=== PATIENT | female | born 1935 | race African-American/Black ===

== ENCOUNTER 2017-06-19 15:50 | Observation (INO) ==
[2017-06-19] MEDS ORDERED: Aspirin 81 MG TAB.CHEW PO ONE (16:08)
[2017-06-19] MEDS ORDERED: Pantoprazole 40 MG VIAL IVP ONE (16:10)
[2017-06-19] MEDS ORDERED: Ondansetron 4 MG/2 ML VIAL IVP ONE ×2 (16:11→17:57)
--- NOTE | 2017-06-19 16:14 | Emergency Department Note ---
Disposition Clinical Impression: Common bile duct stone Chest pain Qualifiers: Chest pain type: unspecified Qualified Code(s): R07.9 - Chest pain, unspecified Fever Qualifiers: Fever type: unspecified Qualified Code(s): R50.9 - Fever, unspecified Nausea & vomiting Qualifiers: Vomiting type: unspecified Vomiting Intractability: unspecified Qualified Code( s): R11.2 - Nausea with vomiting, unspecified Disposition: Admitted As Inpatient Condition: Fair Referrals: Nawaf Tapia DO [Primary Care Provider] - Time of Disposition: 18:51 Chest Pain HPI - General Chief Complaint: ED Chest Pain Stated Complaint: cp/dizzy/vomiting Time Seen by Provider: 06/19/17 16:05 Source: patient Mode of arrival: ambulatory Limitations: no limitations Vital Signs Reviewed: Yes Nursing Notes Reviewed: Yes - History of Present Illness HPI Narrative: 81-year-old female who comes in complaining of chest pain for the last couple of days. Also complains of epigastric pain since she's been vomiting dark material. When asked where the pain was points across her chest and also her epigastrium. She has no history of cardiac disease. Patient takes PPI at home. She was found to have a temperature here at the emergency department. Pt complaint: chest pain Onset (ago): day(s) Duration: intermittent Onset: during rest Pain Location: substernal, left chest, right chest Severity: moderate Severity scale (1-10): 9 Quality: tightness, aching, heaviness Pain Radiation: abdomen Improves with: nothing Worsens with: other (Vomiting) Context: recent illness Associated symptoms: Reports: nausea, vomiting Treatments prior to arrival chest pain: none - Related Data Home Medications Medication Instructions Recorded Confirmed Esomeprazole Magnesium [Nexium] 40 mg PO DAILY 02/24/17 02/24/17 Lansoprazole [Prevacid] 30 mg PO DAILY 02/24/17 02/24/17 Previous Rx's Medication Instructions Recorded Sucralfate [Carafate] 1 gm PO QIDAC #28 tablet 02/24/17 Sulfamethoxazole/Trimeth DS 1 each PO BID #10 tablet 02/24/17 [Bactrim DS] Magnesium Citrate [Citroma] 296 ml PO DAILY #1 solution 04/20/17 Allergies Allergy/AdvReac Type Severity Reaction Status Date / Time Iodinated Contrast- Oral and Allergy Chest Pain Verified 02/24/17 02:11 IV Dye Penicillins Allergy Hives Verified 02/24/17 02:11 All systems ED: reviewed and negative except as stated. Constitutional: Denies: fever, chills, weakness, weight change Eyes: Denies: eye pain, eye discharge, vision change ENT ED: Denies: ear pain, throat pain, dental pain, hearing loss, epistaxis, congestion, dysphagia Cardiovascular: Reports: chest pain. Denies: palpitations, dyspnea on exertion , edema, syncope Respiratory: Denies: cough, dyspnea, wheezes, hemoptysis, stridor Gastrointestinal: Reports: abdominal pain, nausea, vomiting. Denies: diarrhea, constipation, hematemesis, melena, hematochezia Genitourinary: Denies: dysuria, frequency, hematuria, discharge Musculoskeletal: Denies: back pain, neck pain, arthralgia, myalgia Integumentary: Denies: rash, abrasion, lesions Neurological: Denies: headache, weakness, numbness, paresthesias, confusion, abnormal gait, vertigo Psychiatric: Denies: anxiety, depression, suicidal thoughts, homicidal thoughts , auditory hallucinations, visual hallucinations Endocrine: Denies: fatigue Hematological/Lymphatic: Denies: easy bleeding, easy bruising Allergic/Immunologic: Denies: facial swelling, urticaria Chest Pain PMH - Past Medical History Medical history: Reports: arthritis, diabetes, GERD, hypertension Surgical history: Reports: appendectomy, cataract, cholecystectomy, hysterectomy Psychiatric history: Reports: no psych history - Social History Smoking Status: Never smoker Alcohol use: Reports: none Drug use: Reports: none Physical Exam - General Limitations: no limitations General appearance: alert, in no apparent distress - Head Head exam: atraumatic, normocephalic, normal inspection - Eye Eye exam: Present: normal appearance, PERRL, EOMI - ENT ENT exam: normal exam, normal oropharynx, mucous membranes moist - Neck Neck exam: Present: normal inspection, full ROM, trachea midline - Chest Chest inspection: Present: normal inspection, symmetric chest wall rise - Respiratory Respiratory exam: Present: normal lung sounds bilaterally - Cardiovascular Cardiovascular exam: Present: regular rate, normal rhythm, normal heart sounds - Abdominal Exam Abdominal exam: Present: tenderness. Absent: guarding, rebound Abdominal tenderness: Present: epigastrium - Extremities Exam Extremities exam: Present: normal inspection, full ROM. Absent: tenderness, pedal edema - Expanded Lower Extremity Exam Neurovascular/Tendon exam: Absent: motor deficit, sensory deficit, tendon deficit Gait: observed and normal - Back Exam Back exam: Present: normal inspection, full ROM. Absent: tenderness - Neurological Exam Neurological exam: Present: alert, oriented X3 - Psychiatric Psychiatric exam: Present: normal affect, normal mood - Skin Skin exam: Present: warm, dry, intact, normal color Course - Reevaluation(s) Reevaluation #1: 81-year-old comes in with epigastric pain into her right upper quadrant and right lower chest. Workup shows multiple common duct stones. She does have some elevation in her bilirubin, transaminases. Does have a fever of 102+. Concern for ascending cholangitis. Patient was given Cipro and Flagyl as she is allergic to penicillin. Time: 18:52 - Consultations Consultation #1: Discussed with Dr. Jaimes who recommends GI consult and admission to the hospitalist. Time: 18:25 Consultation #2: Discussed with , he is going to check with GI as I am not able to page them per protocol. Time: 18:46 Consultation #3: Discussed with , we will admit and recommends antibiotic Cipro and Flagyl. Time: 18:50 Vital Signs Temperature 102.1 F H 06/19/17 16:02 Pulse Rate 109 06/19/17 16:02 Respiratory Rate 22 06/19/17 16:02 Blood Pressure 110/54 06/19/17 16:02 O2 Sat by Pulse Oximetry 65 06/19/17 16:02 Temperature 102.1 F H 06/19/17 16:02 Pulse Rate 99 06/19/17 17:23 Respiratory Rate 20 06/19/17 17:23 Blood Pressure 93/54 06/19/17 17:23 O2 Sat by Pulse Oximetry 97 06/19/17 17:23 Oxygen Delivery Oxygen Delivery Room Air Chest Pain - Lab Data Lab results reviewed: Yes I reviewed the patient's lab results. Result diagrams: 06/19/17 16:10 06/19/17 16:10 Lab Results 06/19/17 06/19/17 06/19/17 Range/Units 16:10 16:10 16:10 WBC (4.3-11.1) K/mcL RBC (3.82-4.97) M/mcL Hgb (11.5-15.4) g/dL Hct (35.3-44.9) % MCV (83.0-100.0) fL MCH (28.0-33.3) pg MCHC (31.6-35.5) g/dL RDW (11.5-14.5) % Plt Count (140-400) K/mcL MPV (9.4-12.4) fL Immature Gran % (0-4) % Seg Neutrophils % % Lymphocytes % % Monocytes % % Eosinophils % % Basophils % % Neutrophils # (1.6-8.9) K/mcL Lymphocytes # (0.6-4.6) K/mcL Monocytes # (0.0-1.3) K/mcL Eosinophils # (0.0-0.6) K/mcL Basophils # (0.0-0.2) K/mcL Platelet Estimate (Normal) PT 10.9 (9.4-12.1) Seconds INR 1.0 APTT 24.9 L (26.0-36.0) Seconds Sodium 140 (136-145) mEq/L Potassium 3.8 (3.5-5.1) mEq/L Chloride 104 (98-107) mEq/L Carbon Dioxide 27 (23-29) mEq/L BUN 15 (8-23) mg/dL Creatinine 1.14 (0.60-1.20) mg/dL Est GFR ( Amer) 56 L (> 60) Est GFR (Non-Af Amer) 46 L (> 60) BUN/Creatinine Ratio 13 (6-26) Glucose 120 H (70-105) mg/dL Calculated Osmolality 292 (280-300) Lactic Acid 2.4 H (0.5-2.2) mmol/L Calcium 9.2 (8.6-10.3) mg/dL Total Bilirubin 1.5 H (0.3-1.0) mg/dL Direct Bilirubin 0.9 H (0.0-0.2) mg/dL Indirect Bilirubin 0.6 (0.0-1.2) mg/dL AST 634 H (13-39) Units/L ALT 256 H (7-52) Units/L Alkaline Phosphatase 190 H (34-104) Units/L Troponin I (< 0.04) ng/mL B-Natriuretic Peptide (Less than 100) pg/mL Serum Total Protein 7.1 (6.4-8.9) g/dL Albumin 3.9 (3.5-5.7) g/dL Globulin 3.2 (2.4-3.5) g/dL Albumin/Globulin Ratio 1.2 (1.1-2.2) Amylase 90 (29-103) Units/L Lipase 58 (11-82) Units/L Blood Type Antibody Screen 06/19/17 06/19/17 06/19/17 Range/Units 16:10 16:10 16:10 WBC 7.0 (4.3-11.1) K/mcL RBC 3.96 (3.82-4.97) M/mcL Hgb 11.1 L (11.5-15.4) g/dL Hct 35.2 L (35.3-44.9) % MCV 88.9 (83.0-100.0) fL MCH 28.0 (28.0-33.3) pg MCHC 31.5 L (31.6-35.5) g/dL RDW 13.5 (11.5-14.5) % Plt Count 201 (140-400) K/mcL MPV 10.5 (9.4-12.4) fL Immature Gran % 0.1 (0-4) % Seg Neutrophils % 98.0 % Lymphocytes % 1.4 % Monocytes % 0.4 % Eosinophils % 0.0 % Basophils % 0.1 % Neutrophils # 6.9 (1.6-8.9) K/mcL Lymphocytes # 0.1 L (0.6-4.6) K/mcL Monocytes # 0.0 (0.0-1.3) K/mcL Eosinophils # 0.0 (0.0-0.6) K/mcL Basophils # 0.0 (0.0-0.2) K/mcL Platelet Estimate Normal (Normal) PT (9.4-12.1) Seconds INR APTT (26.0-36.0) Seconds Sodium (136-145) mEq/L Potassium (3.5-5.1) mEq/L Chloride (98-107) mEq/L Carbon Dioxide (23-29) mEq/L BUN (8-23) mg/dL Creatinine (0.60-1.20) mg/dL Est GFR ( Amer) (> 60) Est GFR (Non-Af Amer) (> 60) BUN/Creatinine Ratio (6-26) Glucose (70-105) mg/dL Calculated Osmolality (280-300) Lactic Acid (0.5-2.2) mmol/L Calcium (8.6-10.3) mg/dL Total Bilirubin (0.3-1.0) mg/dL Direct Bilirubin (0.0-0.2) mg/dL Indirect Bilirubin (0.0-1.2) mg/dL AST (13-39) Units/L ALT (7-52) Units/L Alkaline Phosphatase (34-104) Units/L Troponin I < 0.03 (< 0.04) ng/mL B-Natriuretic Peptide 48 (Less than 100) pg/mL Serum Total Protein (6.4-8.9) g/dL Albumin (3.5-5.7) g/dL Globulin (2.4-3.5) g/dL Albumin/Globulin Ratio (1.1-2.2) Amylase (29-103) Units/L Lipase (11-82) Units/L Blood Type Antibody Screen 06/19/17 Range/Units 16:25 WBC (4.3-11.1) K/mcL RBC (3.82-4.97) M/mcL Hgb (11.5-15.4) g/dL Hct (35.3-44.9) % MCV (83.0-100.0) fL MCH (28.0-33.3) pg MCHC (31.6-35.5) g/dL RDW (11.5-14.5) % Plt Count (140-400) K/mcL MPV (9.4-12.4) fL Immature Gran % (0-4) % Seg Neutrophils % % Lymphocytes % % Monocytes % % Eosinophils % % Basophils % % Neutrophils # (1.6-8.9) K/mcL Lymphocytes # (0.6-4.6) K/mcL Monocytes # (0.0-1.3) K/mcL Eosinophils # (0.0-0.6) K/mcL Basophils # (0.0-0.2) K/mcL Platelet Estimate (Normal) PT (9.4-12.1) Seconds INR APTT (26.0-36.0) Seconds Sodium (136-145) mEq/L Potassium (3.5-5.1) mEq/L Chloride (98-107) mEq/L Carbon Dioxide (23-29) mEq/L BUN (8-23) mg/dL Creatinine (0.60-1.20) mg/dL Est GFR ( Amer) (> 60) Est GFR (Non-Af Amer) (> 60) BUN/Creatinine Ratio (6-26) Glucose (70-105) mg/dL Calculated Osmolality (280-300) Lactic Acid (0.5-2.2) mmol/L Calcium (8.6-10.3) mg/dL Total Bilirubin (0.3-1.0) mg/dL Direct Bilirubin (0.0-0.2) mg/dL Indirect Bilirubin (0.0-1.2) mg/dL AST (13-39) Units/L ALT (7-52) Units/L Alkaline Phosphatase (34-104) Units/L Troponin I (< 0.04) ng/mL B-Natriuretic Peptide (Less than 100) pg/mL Serum Total Protein (6.4-8.9) g/dL Albumin (3.5-5.7) g/dL Globulin (2.4-3.5) g/dL Albumin/Globulin Ratio (1.1-2.2) Amylase (29-103) Units/L Lipase (11-82) Units/L Blood Type O POSITIVE Antibody Screen NEGATIVE - Radiology Data Radiology results reviewed: Yes I reviewed the patient's radiology results. Chest X-Ray 06/19/17 16:08 IMPRESSION: No acute process. D/ / Tommy Meléndez MD / Tommy Meléndez MD Interpreting Provider: Tommy Meléndez MD Abdomen/Pelvis CT 06/19/17 16:40 IMPRESSION: 1. Dilated common bile duct with multiple stones and new intrahepatic biliary ductal dilatation compared to 2009. 2. Status post cholecystectomy. 3. Colonic diverticulosis without evidence of acute diverticulitis. D/ / Andre Torres MD / Andre Torres MD Interpreting Provider: Andre Torres MD Liver Ultrasound 06/19/17 17:29 IMPRESSION: 1. Central intrahepatic and extrahepatic biliary ductal dilation. Finding is suspicious for distal biliary ductal obstruction. Also consider a choledochal cyst as a less likely differential diagnoses. D/ / 06/19/2017 18:12:00 Elier Sawyer MD / [facility] Interpreting Provider: Elier Sawyer MD - EKG Data EKG attestation: Yes I reviewed and interpreted this EKG. EKG shows normal: sinus rhythm Rate: tachycardia Rhythm: NSR [place]/QRS: LBBB When compared to previous EKG there are: no significant changes (Unchanged from 02/24/2017) Interpretation: no acute changes Heart Score - Score History: Slightly Suspicious EKG: Non Specific repolarisation Disturbance Age: 45-65 Risk Factors: Equal/Greater than 3 risk factor or history of atherosclerotic disease Troponin: Less than normal limit HEART Score Total: 4
[2017-06-19 16:24] LABS: Basophils % 0.1 %; Hematocrit 35.2 % (35.3-44.9); Hemoglobin 11.1 g/dL (11.5-15.4); Immature Granulocytes % 0.1 % (0-4); Lymphocytes # 0.1 K/mcL (0.6-4.6); Lymphocytes % 1.4 %; Mean Corpuscular HGB Conc 31.5 g/dL (31.6-35.5); Mean Corpuscular Volume 88.9 fL (83.0-100.0); Mean Platelet Volume 10.5 fL (9.4-12.4); Monocytes % 0.4 %; Neutrophils # 6.9 K/mcL (1.6-8.9); Platelet Count 201 K/mcL (140-400); Red Blood Count 3.96 M/mcL (3.82-4.97); Red Cell Distribution Width 13.5 % (11.5-14.5)
[2017-06-19 16:29] LABS: Prothrombin Time 10.9 Seconds (9.4-12.1)
[2017-06-19 16:32] LABS: Activated Partial Thrombo Time 24.9 Seconds (26.0-36.0)
[2017-06-19 16:38] LABS: Albumin 3.9 g/dL (3.5-5.7); Bilirubin,Direct 0.9 mg/dL (0.0-0.2); Bilirubin,Indirect 0.6 mg/dL (0.0-1.2); Bilirubin,Total 1.5 mg/dL (0.3-1.0); Calcium 9.2 mg/dL (8.6-10.3); Potassium 3.8 mEq/L (3.5-5.1)
[2017-06-19 16:44] LABS: Albumin/Globulin Ratio 1.2 (1.1-2.2); Globulin 3.2 g/dL (2.4-3.5); Total Protein 7.1 g/dL (6.4-8.9)
[2017-06-19 16:45] LABS: Platelet Estimate Normal (Normal)
[2017-06-19] MEDS ORDERED: *HR* Morphine 2 MG/ML SYRINGE IVP ONE (17:06)
[2017-06-19] MEDS ORDERED: *HR* HYDROmorphone (PF) 1 MG/ML SYRINGE IVP ONE (17:57)
[2017-06-19] MEDS ORDERED: 0.9 % Sodium Chloride 250 ML IVC ONE (18:00)
[2017-06-19] MEDS ORDERED: 0.9 % Sodium Chloride 250 ML ONE (18:00)
[2017-06-19] MEDS ORDERED: MetroNIDAZOLE 500 MG/100 ML 500 MG/100 ML BAG IVPB ONE (18:49)
[2017-06-19] MEDS ORDERED: 0.9 % Sodium Chloride 1,000 ML IVC ONE ×2 (20:13→20:39)
[2017-06-19] MEDS: 0.9 % Sodium Chloride 1,000 ML IVC SCH (20:17)
--- NOTE | 2017-06-19 20:49 | Internal Med History&Physical ---
Date of Encounter: 06/19/17 Time of Encounter: 20:46 Assessment and Plan (1) Ascending cholangitis Current visit: Yes Status: Acute Patient is having symptoms of fever and rigors. Bilirubin is elevated mainly direct and alkaline phosphatase is 190. Patient also have Transaminitis. Patient is hypotensive during my interview with systolic running in the 90s 100th. She is alert oriented times 3. I will give the patient to later bolus of normal saline. Lindsey catheter will be placed for monitoring of urine output. Lactic acid will be repeated. Patient will be started on ciprofloxacin and Flagyl. Blood cultures will be obtained. Patient will be kept NPO for ERCP 1st thing in the morning. Signout to my colleague patient becomes hemodynamically unstable she will need to have ERCP on urgent basis. Patient mentioned that she has brown emesis. Hemoglobin at baseline. Checks stool for occult blood. Keep on IV Protonix. (2) Common bile duct stone Current visit: Yes Status: Acute Patient has common bile duct stones, CBD is dilated. She will have ERCP in the morning. (3) Full code status Current visit: Yes Status: Acute Patient is full code. Internal Medicine - H&P: HPI Chief complaint: abdominal pain History of present illness: Ms. Barriga is a 81 year old female with prior cholecystectomy presents an emergency room today with a main component of abdominal pain. Since this morning patient started experiencing pain in the epigastric and right upper quadrant radiating to the lower chest area. Patient has been nauseous having several episodes of brown emesis. She has been having fever and rigors up to 102 on arrival to emergency room. Imaging in the emergency room showed common bile duct stones with diluted common bile duct and laboratory workup showed evidence of biliary obstruction Past Med Surg Social Fam HX - Past Medical History Medical history: arthritis, diabetes, GERD, hypertension Psychiatric history: no psych history - Past Surgical History Surgical History: appendectomy, cataract, cholecystectomy, hysterectomy - Social History Smoking Status: Never smoker Smokeless Tobacco Status: No Alcohol use: none Drug use: none Internal Medicine - H&P: Meds Lansoprazole [Prevacid] 30 mg PO DAILY 02/24/17 [History] Atorvastatin Calcium [Lipitor] 20 mg PO HS 06/19/17 [History] Docusate Sodium [Dok] 100 mg PO DAILY 06/19/17 [History] Losartan Potassium [Cozaar] 100 mg PO DAILY 06/19/17 [History] metFORMIN [Glucophage] 500 mg PO BID 06/19/17 [History] 3 Allergy/AdvReac Type Severity Reaction Status Date / Time Iodinated Contrast- Oral and Allergy Chest Pain Verified 02/24/17 02:11 IV Dye Penicillins Allergy Hives Verified 02/24/17 02:11 All Systems PM: A 10-system review of systems was performed and is negative for pertinent findings except as documented above in the HPI. Review of systems: 10 point review of systems is negative except for HPI - Constitutional Vitals: Temp Pulse Resp BP Pulse Ox 102.1 F H 99 20 93/54 97 06/19/17 16:02 06/19/17 17:23 06/19/17 17:23 06/19/17 17:23 06/19/17 17:23 Exam: Gen.: patient is alert oriented times 3 not in distress. Cardiac: normal S1 S2 no additional sounds or murmurs. Chest: clear to ausculttion Abdomen: RUQ tenderness. No rebound or guarding lower extremity: lax calf muscles no swelling neuro: no focal deficit Internal Med - H&P Results - Labs CBC & Chem 7: 06/19/17 16:10 06/19/17 16:10
[2017-06-19] MEDS ORDERED: Promethazine 12.5 MG in 0.9 % Sodium Chloride 50 ML IVPB PRN (21:08)
[2017-06-19] MEDS ORDERED: D5% in Water 1,000 ML IVC PRN (21:21)
[2017-06-19] MEDS ORDERED: *HR* Dextrose 50 % in Water (Syg) 50 ML SYRINGE IVP PRN (21:21)
[2017-06-19] MEDS ORDERED: Dextrose Gel 15 GM/37.5 ML TUBE PO PRN ×2 (21:21)
[2017-06-20] MEDS: Insulin LISPRO 300 UNITS/3 ML VIAL SQ SCH ×4 (00:45→18:39)
[2017-06-20] MEDS: MetroNIDAZOLE 500 MG/100 ML 500 MG/100 ML BAG IVPB SCH ×3 (02:22→16:57)
[2017-06-20 06:27] LABS: Hematocrit 27.9 % (35.3-44.9); Hemoglobin 8.7 g/dL (11.5-15.4); Mean Corpuscular HGB Conc 31.2 g/dL (31.6-35.5); Mean Corpuscular Hemoglobin 28.3 pg (28.0-33.3); Mean Corpuscular Volume 90.9 fL (83.0-100.0); Mean Platelet Volume 11.5 fL (9.4-12.4); Nucleated Red Blood Cells 0.1 /100 WBC (0); Platelet Count 165 K/mcL (140-400); Red Blood Count 3.07 M/mcL (3.82-4.97); Red Cell Distribution Width 14.2 % (11.5-14.5)
[2017-06-20 06:31] LABS: VBG HCO3 24 mEq/L (21-27); VBG PCO2 37 mmHg (41-51); VBG PH 7.43 pH Units (7.32-7.42); VBG PO2 112 mmHg (25-50)
[2017-06-20 06:37] LABS: INR 1.1
[2017-06-20 06:46] LABS: Albumin/Globulin Ratio 1.3 (1.1-2.2); Bilirubin,Direct 2.1 mg/dL (0.0-0.2); Bilirubin,Indirect 0.9 mg/dL (0.0-1.2); Calcium 7.8 mg/dL (8.6-10.3); Globulin 2.3 g/dL (2.4-3.5); Potassium 4.6 mEq/L (3.5-5.1); Total Protein 5.3 g/dL (6.4-8.9)
[2017-06-20] MEDS: 0.9 % Sodium Chloride 1,000 ML IVC SCH ×2 (09:10→16:57)
[2017-06-20] MEDS: Pantoprazole 40 MG VIAL IVP SCH (09:11)
[2017-06-20 09:20] LABS: Lymphocytes # 0.4 K/mcL (0.6-4.6); Monocytes # 0.4 K/mcL (0.0-1.3); Neutrophils # 18.1 K/mcL (1.6-8.9)
[2017-06-20 09:21] LABS: Platelet Estimate Normal (Normal)
[2017-06-20] MEDS ORDERED: *HR* Rocuronium Bromide 50 MG/5 ML VIAL ONE (09:34)
[2017-06-20] MEDS ORDERED: *HR* FentaNYL (PF) 100 MCG/2 ML VIAL ONE (09:34)
[2017-06-20] MEDS ORDERED: Ondansetron 4 MG/2 ML VIAL ONE (09:34)
[2017-06-20] MEDS ORDERED: Lidocaine -MPF 2% 2 ML VIAL ONE (09:35)
[2017-06-20] MEDS ORDERED: *HR* Propofol 200 MG/20 ML VIAL IVP ONE (09:35)
--- NOTE | 2017-06-20 09:47 | Anesthesia Evaluation PreOp ---
Date of Encounter: 06/20/17 Time of Encounter: 09:45 - Past History Planned Operation: ERCT Cardiac History: HTN Pulmonary History: Other (Never a Smoker) RESIDENT ADVISOR History: Denies Any Significant HX Other Medical History: Diabetes Type II, GERD : No Alcohol Use: none Drug use: none Medications and Allergies Lansoprazole [Prevacid] 30 mg PO DAILY 02/24/17 [History] Atorvastatin Calcium [Lipitor] 20 mg PO HS 06/19/17 [History] Docusate Sodium [Dok] 100 mg PO DAILY 06/19/17 [History] Losartan Potassium [Cozaar] 100 mg PO DAILY 06/19/17 [History] metFORMIN [Glucophage] 500 mg PO BID 06/19/17 [History] 3 Allergy/AdvReac Type Severity Reaction Status Date / Time Iodinated Contrast- Oral and Allergy Chest Pain Verified 02/24/17 02:11 IV Dye Penicillins Allergy Hives Verified 02/24/17 02:11 - Meds/Allergy Pre-op Review Medications Reviewed: Yes Allergies Reviewed: Yes Beta Blockers on Current Med List: No Anesthesia Results - Labs 06/20/17 06:12 06/20/17 06:12 Anesthesia Exam 96/57 pulse 72 RA Sat 92% RR16 NPO (# of Hours): >8 hours - HEENT Mallampati: II Teeth: Edentulous Denture Type: Upper: Complete, Lower: Complete Oral Opening: Less than or equal to 3 - RESIDENT ADVISOR RESIDENT ADVISOR Motor: Normal RUE, Normal LUE, Normal RLE, Normal LLE, Normal Face RESIDENT ADVISOR Sensory: Normal: RUE, LUE, RLE, LLE, Face - Cardiac Murmur: None JVD: No Carotid Bruit: No - Pulmonary Breath Sounds: bilateral Clear Anesthesia Assess/Plan ASA Score: 3 Modified Joel Scale for Level of Consciousness: Cooperative, oriented, and tranquil Anesthetic Plan: General Autologous Blood: No Monitoring Plan: Standard Monitors Recovery Plan: PACU
--- NOTE | 2017-06-20 10:49 | Gastroenterology Consult Note ---
<Prsicilla rUbina - Last Filed: 06/20/17 10:44> Date of Encounter: 06/20/17 Time of Encounter: 09:45 - Assessment and plan (1) Common bile duct stone Current Visit: Yes Status: Acute Assessment and plan: CT and liver ultrasound consistent with CBD stone will proceed with ERCP today. Continue antibiotics and IVF. Risks and benefits expained and patient and son verbalize understanding. Monitor for s/sx of pancreatitis postoperatively. (2) Anemia Current Visit: Yes Status: Acute Assessment and plan: Monitor H&H, may be dilutional. Denies any bloody or tarry stools. Had negative EGD/colon 10/30 may need repeated if HGB continues to drop. Qualifiers: Anemia type: unspecified type Qualified Code(s): D64.9 - Anemia, unspecified - Time Spent With Patient Total time spent is greater than 50% in coordination of care (as documented) at patient's floor/unit and/or counseling patient: GI History of Present Illness - Data of Consult Patient: new to practice Consult date: 06/20/17 Requesting Physician: Sarah Peralta CNP - Consult Narrative Reason for consult: CBD stone History of present illness: Ms. Barriga is a 81 year old female with arthritis, diabetes, GERD, and hypertension. She had cholecystectomy "many years ago". She presented to the Er with complaints of epigastric and RUQ abdominal pain radiating to her lower chest, nausea and vomiting yesterday with brown emesis fever and rigors up to 102 on arrival to emergency room. She states she has had pain for several months that comes and goes and had been treated for GERD with minimal relief. She denies any diarrhea or constipation. She does complain of poor appetite. CT abdomen showed a dilated common bile duct with multiple stones and new intrahepatic biliary ductal dilatation compared to 2010. Liver ultrasound showed a Central intrahepatic and extrahepatic biliary ductal dilation. Finding is suspicious for distal biliary ductal obstruction. Also consider a choledochal cyst as a less likely differential diagnoses. Labs show a hemoglobin of 8.7, RBCs 18.8, total bilirubin 3.0, AST 402, ALT of 271, alkaline phosphatase 160, CRP 58, albumin 3.0. Colonoscopy: 10/30 Dr Harrison hypertrophied anal papilla, diverticulosis, one 4 m polyp in the rectum, tubular adenoma Dr Spahn gastritis and small hiatal hernia NSAIDS/ASA: none Anticoagulants: none Past Med Surg Social Fam HX - Past Medical History Medical history: arthritis, diabetes, GERD, hyperlipidemia, hypertension Psychiatric history: no psych history - Past Surgical History Surgical History: appendectomy, cataract, cholecystectomy, hysterectomy - Social History Smoking Status: Never smoker Smokeless Tobacco Status: No Alcohol use: none Drug use: none - Family History Brother Hx Family Cardiac Disorders: Yes (Hypertension) Review of Systems: GI: as per [place] GENERAL: fever and chills EYES: denies yellow discoloration ENT: denies pain with swallowing or difficulty swallowing CARDIO: see HPI RESP: No Shortness of breath with exertion : denies change in color of urine NEURO: any weakness HEME: Denies any bruising MS: CHRONIC joint pain, joint swelling or back pain. DERM: denies rash or itching PSYCH: Denies history of anxiety or depression - Constitutional Vitals: Temp Pulse Resp BP Pulse Ox 98.3 F 75 16 96/57 93 06/20/17 07:09 06/20/17 09:51 06/20/17 09:51 06/20/17 09:51 06/20/17 09:51 Exam: CONSTITUTIONAL:~alert, no acute distress.~HEAD:~normocephalic.~EYES:~no jaundice.~NECK:~no obvious swelling.~HEART:~regular rate and rhythm, no murmurs. ~LUNGS:~bilateral good air entry.~ABDOMEN:~non distended, soft, tender upper quadrants, no masses palpable, no organomegaly.~RECTAL EXAM:~Deferred.~ EXTREMITIES:~no clubbing, cyanosis or edema.~SKIN:~no stigmata of chronic liver disease.~NEUROLOGIC:~no obvious focal defect.~~~~ Results - Labs CBC & Chem 7: 06/20/17 06:12 06/20/17 06:12 Labs: Last Result Calcium 7.8 mg/dL (8.6-10.3) L 06/20/17 06:12 Troponin I < 0.03 ng/mL (< 0.04) 06/19/17 16:10 C-Reactive Protein 58 mg/L (Less than 10) H 06/20/17 06:12 Entire Visit Hgb 8.7 g/dL (11.5-15.4) L D 06/20/17 06:12 Hct 27.9 % (35.3-44.9) L 06/20/17 06:12 PT 12.0 Seconds (9.4-12.1) 06/20/17 06:12 Total Bilirubin 3.0 mg/dL (0.3-1.0) H 06/20/17 06:12 AST 402 Units/L (13-39) H 06/20/17 06:12 ALT 271 Units/L (7-52) H 06/20/17 06:12 Amylase 90 Units/L (29-103) 06/19/17 16:10 Lipase 58 Units/L (11-82) 06/19/17 16:10 - ABG ABG results: PT/INR, D-dimer PT 12.0 Seconds (9.4-12.1) 06/20/17 06:12 Consult Discharge Plan - Plan Referrals: Nawaf Tapia DO [Primary Care Provider] - <Owen Cadena - Last Filed: 06/20/17 11:42> Date of Encounter: 06/20/17 Time of Encounter: 10:00 - Time Spent With Patient Total time spent is greater than 50% in coordination of care (as documented) at patient's floor/unit and/or counseling patient: GI History of Present Illness - Data of Consult Requesting Physician: Sarah Peralta CNP - Consult Narrative History of present illness: Ms. Barriga is a 81 year old female - Constitutional Vitals: Temp Pulse Resp BP Pulse Ox 98.3 F 75 16 96/57 93 06/20/17 07:09 06/20/17 09:51 06/20/17 09:51 06/20/17 09:51 06/20/17 09:51 Results - Labs CBC & Chem 7: 06/20/17 06:12 06/20/17 06:12 Labs: Last Result Calcium 7.8 mg/dL (8.6-10.3) L 06/20/17 06:12 Troponin I < 0.03 ng/mL (< 0.04) 06/19/17 16:10 C-Reactive Protein 58 mg/L (Less than 10) H 06/20/17 06:12 Entire Visit Hgb 8.7 g/dL (11.5-15.4) L D 06/20/17 06:12 Hct 27.9 % (35.3-44.9) L 06/20/17 06:12 PT 12.0 Seconds (9.4-12.1) 06/20/17 06:12 Total Bilirubin 3.0 mg/dL (0.3-1.0) H 06/20/17 06:12 AST 402 Units/L (13-39) H 06/20/17 06:12 ALT 271 Units/L (7-52) H 06/20/17 06:12 Amylase 90 Units/L (29-103) 06/19/17 16:10 Lipase 58 Units/L (11-82) 06/19/17 16:10 - ABG ABG results: PT/INR, D-dimer PT 12.0 Seconds (9.4-12.1) 06/20/17 06:12 - Attending Attestation I examined this patient and my medical decision-making was reviewed with the Resident Physician. I agree with the documented findings, disposition and treatment plan as described except to the extent set forth below. Patient with CBD stones multiple along with cholangitis with the elevated liver function testing high white count and fever. She will have an urgent ERCP done today for biliary decompression. Cont IV antibiotics
[2017-06-20] MEDS ORDERED: *HR* Phenylephrine 10 MG/ML VIAL ONE (11:39)
[2017-06-20] MEDS ORDERED: Indomethacin 50 MG SUPP.RECT RC ONE (11:44)
--- NOTE | 2017-06-20 13:04 | Anesthesia Evaluation Post Op ---
Date of Encounter: 06/20/17 Time of Encounter: 13:06 - Vital Signs Vital Signs: Vital Signs - Last 8 Hours Temp Pulse Resp BP Pulse Ox 06/20/17 13:00 98.3 F 62 15 115/53 93 06/20/17 12:55 61 14 122/61 93 06/20/17 12:45 98.5 F 61 15 115/60 93 06/20/17 12:35 98.1 F 62 14 143/66 95 06/20/17 12:25 63 16 137/66 97 06/20/17 12:15 66 14 134/69 97 06/20/17 12:05 97.5 F L 74 16 142/73 99 06/20/17 09:51 75 16 96/57 93 06/20/17 09:11 93/63 06/20/17 08:13 109/54 06/20/17 07:09 98.3 F 73 17 101/53 96 06/20/17 06:24 98.6 F 72 18 96/57 95 Intake and Output 06/19/17 06/20/17 06/20/17 23:59 07:59 15:59 Intake Total 0 / 0 1100 / 1100 Output Total 50 / 50 Balance 0 / 0 1050 / 1050 Intake: IV Fluids 0 / 0 1100 / 1100 0.9 % Sodium Chloride 1,000 ML 1000 / 1000 @ 125 mls/hr IVC .Q8H [facility] Rx#: [id number] 0.9 % Sodium Chloride 250 ML @ 0 / 0 937.5 mls/hr IVC .Q16M ONE Rx#: [id number] Flagyl Premix 500 MG/100 ML 500 100 / 100 mg In 100 ml @ 100 mls/hr IVPB Q8HR [facility] Rx#:[id number] Output: Catheter 50 / 50 Urethral (Lindsey) 50 / 50 Other: Weight 47.31 kg 46.9 kg Blood Glucose* 115 101 Patient Weight 06/20/17 23:59 Weight 46.9 kg - Lungs Lungs: Clear Ascult./Percussion - Airway Airway: Non-obstructed - Cardiovascular Regular Rate, Baseline Rhythm - Mental Status Mental Status: Alert & Oriented, Answers Appropriately - Pain Pain Scale: 0 Pain Scale used: Numeric (1 - 10) - Nausea Vomiting Nausea Vomiting: Not Present - Hydration Hydration: Tolerates oral liquids - Discharge PostOp Status: Transfer Patient to floor
--- NOTE | 2017-06-20 16:16 | Internal Med Progress Note ---
Date of Encounter: 06/20/17 Time of Encounter: 16:13 - Assessment and plan (1) Choledocholithiasis Current Visit: Yes Status: Acute Assessment and plan: presented with abdominal pain, fevers and rigors. WBC 18K, lactic acid normal. LFTs and bilirubin elevated. ABD CT showed dilated CBD with multiple stones and new intrahepatic biliary ductal dilation. ERCP showed large amount of choledocholithiasis with removal of stones and placement of 2 stents to common bile duct. Hemodynamically stable, no tachycardia and hypotension. Cont IV Cipro, Flagyl. Clear liquid diet per GI. Repeat LFTs trending down. GI following (2) DANIELA (acute kidney injury) Current Visit: Yes Status: Acute Assessment and plan: Cr 1.3; baseline normal. Cont IV fluids. Monitor repeat BMP (3) Diabetes Current Visit: Yes Status: Acute Assessment and plan: per hx. holding home oral hypoglycemics. Blood sugars controlled. SSI. Monitor blood sugar and titrate PRN Qualifiers: Diabetes mellitus type: type 2 Diabetes mellitus complication status: without complication Diabetes mellitus assisted insulin use: without long term acute care registered nurse use Qualified Code(s): E11.9 - Type 2 diabetes mellitus without complications (4) Hypertension Current Visit: Yes Status: Acute Assessment and plan: per hx. BP controlled without BP medication. Monitor BP and resume home BP medication as BP allows Qualifiers: Hypertension type: essential hypertension Qualified Code(s): I10 - Essential (primary) hypertension (5) DVT prophylaxis Current Visit: Yes Status: Acute Assessment and plan: heparin - Time Spent With Patient less than 15 minutes - Subjective Interval history: Seen and examined at bedside; patient is new to me. Information obtained from chart review and patient report. She just returned from ERCP; complains of mild abdominal discomfort but overall says she feels better. No chest pain or shortness of breath. No fevers or chills. - Constitutional Vitals: Temp Pulse Resp BP Pulse Ox 98.3 F 62 15 115/53 93 06/20/17 13:00 06/20/17 13:00 06/20/17 13:00 06/20/17 13:00 06/20/17 13:00 General appearance: Present: A&O X 3, no acute distress - Head Head exam: Present: atraumatic, normocephalic - Eye Eye exam: Present: PERRL, conjuntiva pink, sclera anicteric Pupils: Present: PERRL - Neck Neck exam general surgery: Present: supple, trachea midline. Absent: lymphadenopathy - Respiratory Respiratory exam: Present: CTAB. Absent: accessory muscle use, rales, rhonchi, wheezes - Cardiovascular Cardiovascular exam: Present: RRR, +S1, +S2. Absent: diastolic murmur, gallop, rubs, systolic murmur - GI/Abdominal GI/Abdominal exam: Present: normal bowel sounds, soft, no peritoneal signs. Absent: distended, tenderness - Extremities Exam Extremities exam: Present: warm, radial pulses palpable and symmetrical. Absent : calf tenderness, cyanotic, pedal edema - Neurological Exam Neurological exam: Present: CN II-XII intact, oriented X3, no focal deficits. Absent: pronater drift, facial droop, speech deficit - Skin Skin exam: Present: dry, intact Internal Medicine: Result - Labs CBC & Chem 7: 06/20/17 06:12 06/20/17 06:12 Labs: Short CBC 06/20/17 Range/Units 06:12 WBC 18.8 H D (4.3-11.1) K/mcL Hgb 8.7 L D (11.5-15.4) g/dL Hct 27.9 L (35.3-44.9) % Plt Count 165 (140-400) K/mcL Neutrophils # 18.1 H (1.6-8.9) K/mcL BMP 06/20/17 06:12 Sodium 140 Potassium 4.6 Chloride 111 H Carbon Dioxide 24 BUN 20 Creatinine 1.33 H Glucose 93 Calcium 7.8 L Liver Function 06/20/17 Range/Units 06:12 Total Bilirubin 3.0 H (0.3-1.0) mg/dL Direct Bilirubin 2.1 H (0.0-0.2) mg/dL AST 402 H (13-39) Units/L ALT 271 H (7-52) Units/L Alkaline Phosphatase 160 H (34-104) Units/L Albumin 3.0 L (3.5-5.7) g/dL - ABG Interpretation ABG results: PT/INR, D-dimer PT 12.0 Seconds (9.4-12.1) 06/20/17 06:12 - Impressions Impressions Cath/Invasive Procedure 06/20/17 10:00 IMPRESSION: Intraoperative fluoroscopy provided. Please refer to the procedure report for further details. D/ / Bruno Pillai MD / Bruno Pillai MD Interpreting Provider: Bruno Pillai MD Consult Discharge Plan - Plan Referrals: Nawaf Tapia DO [Primary Care Provider] -
--- NOTE | 2017-06-20 19:21 | Electrocardiograph Report ---
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
[2017-06-20 21:56] LABS: Acinetobacter baumannii by PCR Not Detected (Not Detect); Candida albicans by PCR Not Detected (Not Detect); Candida glabrata by PCR Not Detected (Not Detect); Candida krusei by PCR Not Detected (Not Detect); Candida parapsilosis by PCR Not Detected (Not Detect); Candida tropicalis by PCR Not Detected (Not Detect); Enterococcus by PCR Not Detected (Not Detect); Escherichia coli by PCR ***DETECTED*** (Not Detect); Klebsiella oxytoca by PCR Not Detected (Not Detect); Klebsiella pneumoniae by PCR Not Detected (Not Detect); Pseudomonas aeruginosa by PCR Not Detected (Not Detect); Serratia marcescens by PCR Not Detected (Not Detect); Staphylococcus aureus by PCR Not Detected (Not Detect); Streptococcus agalactiae(B)PCR Not Detected (Not Detect); Streptococcus by PCR Not Detected (Not Detect); Streptococcus pneumoniae PCR Not Detected (Not Detect); Streptococcus pyogenes (A) PCR Not Detected (Not Detect); blaKPC Carbapenem-Resist Gene Not Detected (Not Detect); mecA Methicillin-Resist Gene Not Detected (Not Detect); vanA/B Vancomycin-Resist Genes Not Detected (Not Detect)
[2017-06-21] MEDS: MetroNIDAZOLE 500 MG/100 ML 500 MG/100 ML BAG IVPB SCH ×4 (00:08→23:38)
[2017-06-21] MEDS: 0.9 % Sodium Chloride 1,000 ML IVC SCH ×5 (00:09→18:03)
[2017-06-21] MEDS: Insulin LISPRO 300 UNITS/3 ML VIAL SQ SCH ×4 (00:33→17:50)
[2017-06-21 07:34] LABS: Hemoglobin 8.2 g/dL (11.5-15.4); Mean Corpuscular HGB Conc 31.5 g/dL (31.6-35.5); Mean Corpuscular Hemoglobin 28.2 pg (28.0-33.3); Mean Corpuscular Volume 89.3 fL (83.0-100.0); Mean Platelet Volume 11.6 fL (9.4-12.4); Platelet Count 144 K/mcL (140-400); Red Blood Count 2.91 M/mcL (3.82-4.97); Red Cell Distribution Width 14.1 % (11.5-14.5)
[2017-06-21 08:07] LABS: Albumin 2.8 g/dL (3.5-5.7); Albumin/Globulin Ratio 1.2 (1.1-2.2); Bilirubin,Total 2.6 mg/dL (0.3-1.0); Calcium 7.7 mg/dL (8.6-10.3); Globulin 2.3 g/dL (2.4-3.5); Potassium 3.7 mEq/L (3.5-5.1); Total Protein 5.1 g/dL (6.4-8.9)
[2017-06-21] MEDS: *HR* Heparin 5,000 UNIT/ML VIAL SQ SCH ×2 (09:35→17:50)
[2017-06-21] MEDS: Pantoprazole 40 MG VIAL IVP SCH (09:35)
--- NOTE | 2017-06-21 10:44 | Internal Med Progress Note ---
Date of Encounter: 06/21/17 Time of Encounter: 10:30 - Assessment and plan (1) Diabetes Current Visit: Yes Status: Acute Assessment and plan: per hx. holding home oral hypoglycemics. Blood sugars controlled. SSI. Monitor blood sugar and titrate PRN Qualifiers: Diabetes mellitus type: type 2 Diabetes mellitus complication status: without complication Diabetes mellitus manager long term care insulin use: without manager long term care use Qualified Code(s): E11.9 - Type 2 diabetes mellitus without complications (2) Hypertension Current Visit: Yes Status: Acute Assessment and plan: per hx. BP controlled without BP medication. Monitor BP and resume home BP medication as BP allows Qualifiers: Hypertension type: essential hypertension Qualified Code(s): I10 - Essential (primary) hypertension (3) Choledocholithiasis Current Visit: Yes Status: Acute Assessment and plan: ABD CT showed dilated CBD with multiple stones and new intrahepatic biliary ductal dilation. ERCP showed large amount of choledocholithiasis with removal of stones and placement of 2 stents to common bile duct. LFTs are improving. Continue with IV Cipro and Flagyl. Advance diet to full liquid. Plan on discharge tomorrow if tolerating diet and remains afebrile. Follow-up with GI. (4) DANIELA (acute kidney injury) Current Visit: Yes Status: Acute Assessment and plan: Cr 1.19. Improving on IV fluids. Decrease IV fluid rate to 60 mL an hour. She is going to have more by mouth. Check labs in the morning. (5) DVT prophylaxis Current Visit: Yes Status: Acute Assessment and plan: heparin - Subjective Interval history: No acute events. The patient remains afebrile. Abdominal pain is gone. Tolerating clears. - Constitutional Vitals: Temp Pulse Resp BP Pulse Ox 98.4 F 69 17 129/67 93 06/21/17 07:03 06/21/17 07:03 06/21/17 07:03 06/21/17 07:03 06/21/17 07:03 General appearance: Present: A&O X 3, no acute distress Exam: GEN: NAD CVS: RRR. S1, S2, No m/r/g RESP: CTAB ABD: Soft, NT, ND, +BS EXT: No edema. 2+ DP. No rashes NEURO: Nonfocal Internal Medicine: Result - Labs CBC & Chem 7: 06/21/17 06:51 06/21/17 06:51 Labs: Short CBC 06/21/17 Range/Units 06:51 WBC 13.4 H (4.3-11.1) K/mcL Hgb 8.2 L (11.5-15.4) g/dL Hct 26.0 L (35.3-44.9) % Plt Count 144 (140-400) K/mcL BMP 06/21/17 06:51 Sodium 143 Potassium 3.7 Chloride 113 H Carbon Dioxide 22 L BUN 21 Creatinine 1.19 Glucose 115 H Calcium 7.7 L Liver Function 06/21/17 Range/Units 06:51 Total Bilirubin 2.6 H (0.3-1.0) mg/dL AST 172 H (13-39) Units/L ALT 167 H (7-52) Units/L Alkaline Phosphatase 136 H (34-104) Units/L Albumin 2.8 L (3.5-5.7) g/dL - ABG Interpretation ABG results: PT/INR, D-dimer PT 12.0 Seconds (9.4-12.1) 06/20/17 06:12 - Impressions Impressions Cath/Invasive Procedure 06/20/17 10:00 IMPRESSION: Intraoperative fluoroscopy provided. Please refer to the procedure report for further details. D/ / Bruno Pillai MD / Bruno Pillai MD Interpreting Provider: Bruno Pillai MD Consult Discharge Plan - Plan Referrals: Nawaf Tapia DO [Primary Care Provider] -
[2017-06-21] MEDS: *HR* Morphine 2 MG/ML SYRINGE IVP PRN (16:35)
[2017-06-22] MEDS: Insulin LISPRO 300 UNITS/3 ML VIAL SQ SCH ×4 (00:15→18:26)
[2017-06-22] MEDS: 0.9 % Sodium Chloride 1,000 ML IVC SCH ×2 (05:46→05:56)
[2017-06-22] MEDS: *HR* Heparin 5,000 UNIT/ML VIAL SQ SCH ×2 (05:59→16:37)
[2017-06-22 06:38] LABS: Alanine Aminotransferase 121 Units/L (7-52); Albumin 2.8 g/dL (3.5-5.7); Albumin/Globulin Ratio 1.2 (1.1-2.2); Alkaline Phosphatase 138 Units/L (34-104); Aspartate Amino Transferase 81 Units/L (13-39); BUN/Creatinine Ratio 15 (6-26); Bilirubin,Total 1.7 mg/dL (0.3-1.0); Blood Urea Nitrogen 13 mg/dL (8-23); Carbon Dioxide 22 mEq/L (23-29); Chloride 113 mEq/L (98-107); Globulin 2.4 g/dL (2.4-3.5); Glucose 101 mg/dL (70-105); Osmolality,Calculated 292 (280-300); Potassium 3.6 mEq/L (3.5-5.1); Sodium 141 mEq/L (136-145); Total Protein 5.2 g/dL (6.4-8.9); eGFR For African Americans > 60 (> 60); eGFR For Non-African Americans > 60 (> 60)
[2017-06-22 06:40] LABS: Basophils % 0.2 %; Eosinophils % 0.3 %; Hematocrit 26.4 % (35.3-44.9); Hemoglobin 8.5 g/dL (11.5-15.4); Immature Granulocytes % 0.9 % (0-4); Lymphocytes # 0.6 K/mcL (0.6-4.6); Lymphocytes % 4.5 %; Mean Corpuscular HGB Conc 32.2 g/dL (31.6-35.5); Mean Corpuscular Hemoglobin 28.9 pg (28.0-33.3); Mean Corpuscular Volume 89.8 fL (83.0-100.0); Mean Platelet Volume 12.2 fL (9.4-12.4); Monocytes # 0.7 K/mcL (0.0-1.3); Monocytes % 5.6 %; Neutrophils # 11.3 K/mcL (1.6-8.9); Platelet Count 150 K/mcL (140-400); Red Blood Count 2.94 M/mcL (3.82-4.97); Red Cell Distribution Width 14.3 % (11.5-14.5); Segmented Neutrophils % 88.5 %
[2017-06-22] MEDS: MetroNIDAZOLE 500 MG/100 ML 500 MG/100 ML BAG IVPB SCH ×2 (08:38→16:43)
[2017-06-22] MEDS: *HR* Morphine 2 MG/ML SYRINGE IVP PRN (08:39)
--- NOTE | 2017-06-22 09:52 | Discharge Summary ---
Date of Encounter: 06/23/17 Time of Encounter: 09:49 - Discharge Diagnosis (1) Diabetes Priority: Secondary Status: Acute Qualifiers: Diabetes mellitus type: type 2 Diabetes mellitus complication status: without complication Diabetes mellitus parts counterman insulin use: without assisted use Qualified Code(s): E11.9 - Type 2 diabetes mellitus without complications (2) Hypertension Priority: Secondary Status: Acute Qualifiers: Hypertension type: essential hypertension Qualified Code(s): I10 - Essential (primary) hypertension (3) Choledocholithiasis Priority: Primary Status: Acute (4) DANIELA (acute kidney injury) Priority: Primary Status: Acute - Discharge Medications Prescriptions: Sulfamethoxazole/Trimeth SS [Bactrim SS] 1 each PO BID #28 tablet Home Medications: Lansoprazole [Prevacid] 30 mg PO DAILY 02/24/17 [History] Atorvastatin Calcium [Lipitor] 20 mg PO HS 06/19/17 [History] Docusate Sodium [Dok] 100 mg PO DAILY 06/19/17 [History] Losartan Potassium [Cozaar] 100 mg PO DAILY 06/19/17 [History] metFORMIN [Glucophage] 500 mg PO BID 06/19/17 [History] Sulfamethoxazole/Trimeth SS [Bactrim SS] 1 each PO BID #28 tablet 06/23/17 [Rx] Allergies/Adverse Reactions: 3 Allergy/AdvReac Type Severity Reaction Status Date / Time Iodinated Contrast- Oral and Allergy Chest Pain Verified 02/24/17 02:11 IV Dye Penicillins Allergy Hives Verified 02/24/17 02:11 Date of admission: 06/19/17 20:35 Primary care physician: Nawaf Tapia, Consults: 06/19/17 20:40 Consult to Physical Therapy [CONS] Routine Comment: Evaluate, develop and implement POC Reason for Consult: weakness - Patient Status Disposition: Home, Self-Care Overall status at discharge: patient is progressing back to baseline - Discharge Instructions Follow Up With: Nawaf Tapia DO [Primary Care Provider] - Owen Cadena MD [Partnered Physician] - (6 weeks) Forms: ED Satisfaction Letter - Diet and Activity Activity: increase activity as tolerated Diet: diabetic diet Hospital course: Ms. Barriga is a 81 year old female with prior cholecystectomy presented an emergency room today with a main component of abdominal pain. She has been having fever and rigors up to 102 on arrival to emergency room. Imaging in the emergency room showed common bile duct stones with dilated common bile duct and laboratory workup showed evidence of biliary obstruction with elevated liver enzymes. White count was as high as 18,000. It was evidence of acute kidney injury. She was put on IV fluids and IV antibiotics. GI was consulted. She was taken for an ERCP and 2 stents were placed. Multiple stones were extracted from the common bile duct. Sphincterotomy was done. She did well postoperatively. She continued to have no fevers. Her white count did resolve. She is tolerating diet. She was discharged on Cipro and Flagyl as well as a follow-up with GI and her primary care physician. She was stable for discharge on 06/22/2017. - Time Spent with Patient Total time spent providing and/or coordinating discharge services: Greater than 30 minutes - Constitutional Vitals: Temp Pulse Resp BP Pulse Ox 98.8 F 75 17 132/71 90 06/22/17 06:57 06/22/17 06:57 06/22/17 06:57 06/22/17 06:57 06/22/17 06:57 General appearance: Present: A&O X 3, no acute distress Exam: GEN: NAD CVS: RRR. S1, S2, No m/r/g RESP: CTAB ABD: Soft, NT, ND, +BS EXT: No edema. 2+ DP. No rashes NEURO: Nonfocal
[2017-06-23] MEDS: MetroNIDAZOLE 500 MG/100 ML 500 MG/100 ML BAG IVPB SCH ×2 (01:53→10:24)
[2017-06-23] MEDS: Insulin LISPRO 300 UNITS/3 ML VIAL SQ SCH ×2 (01:53→05:42)
[2017-06-23] MEDS: *HR* Heparin 5,000 UNIT/ML VIAL SQ SCH (05:42)
[2017-06-23 05:50] LABS: Basophils % 0.3 %; Eosinophils # 0.1 K/mcL (0.0-0.6); Eosinophils % 0.5 %; Hemoglobin 8.8 g/dL (11.5-15.4); Immature Granulocytes % 1.1 % (0-4); Lymphocytes # 0.6 K/mcL (0.6-4.6); Lymphocytes % 5.9 %; Mean Corpuscular HGB Conc 32.6 g/dL (31.6-35.5); Mean Corpuscular Hemoglobin 28.8 pg (28.0-33.3); Mean Corpuscular Volume 88.2 fL (83.0-100.0); Mean Platelet Volume 12.3 fL (9.4-12.4); Monocytes # 0.9 K/mcL (0.0-1.3); Monocytes % 9.3 %; Neutrophils # 7.7 K/mcL (1.6-8.9); Nucleated Red Blood Cells 0.6 /100 WBC (0); Platelet Count 169 K/mcL (140-400); Red Blood Count 3.06 M/mcL (3.82-4.97); Red Cell Distribution Width 14.3 % (11.5-14.5); Segmented Neutrophils % 82.9 %
[2017-06-23 06:18] LABS: Alanine Aminotransferase 85 Units/L (7-52); Albumin 2.6 g/dL (3.5-5.7); Albumin/Globulin Ratio 0.9 (1.1-2.2); Alkaline Phosphatase 144 Units/L (34-104); Aspartate Amino Transferase 41 Units/L (13-39); BUN/Creatinine Ratio 13 (6-26); Bilirubin,Total 1.4 mg/dL (0.3-1.0); Blood Urea Nitrogen 11 mg/dL (8-23); Calcium 8.5 mg/dL (8.6-10.3); Carbon Dioxide 22 mEq/L (23-29); Chloride 111 mEq/L (98-107); Globulin 2.8 g/dL (2.4-3.5); Glucose 115 mg/dL (70-105); Osmolality,Calculated 288 (280-300); Potassium 3.5 mEq/L (3.5-5.1); Sodium 139 mEq/L (136-145); Total Protein 5.4 g/dL (6.4-8.9); eGFR For African Americans > 60 (> 60); eGFR For Non-African Americans > 60 (> 60)
[2017-06-23 07:28] VITALS: BP 164/79
--- NOTE | 2017-06-23 14:41 | Internal Med Progress Note ---
Date of Encounter: 06/23/17 Time of Encounter: 09:00 - Assessment and plan (1) Diabetes Status: Acute Assessment and plan: per hx. holding home oral hypoglycemics. Blood sugars controlled. SSI. Monitor blood sugar and titrate PRN Qualifiers: Diabetes mellitus type: type 2 Diabetes mellitus complication status: without complication Diabetes mellitus long term care pharmacist insulin use: without chcf use Qualified Code(s): E11.9 - Type 2 diabetes mellitus without complications (2) Hypertension Status: Acute Assessment and plan: per hx. BP controlled without BP medication. Monitor BP and resume home BP medication as BP allows Qualifiers: Hypertension type: essential hypertension Qualified Code(s): I10 - Essential (primary) hypertension (3) Choledocholithiasis Status: Acute Assessment and plan: ABD CT showed dilated CBD with multiple stones and new intrahepatic biliary ductal dilation. ERCP showed large amount of choledocholithiasis with removal of stones and placement of 2 stents to common bile duct. LFTs are improving. Continue with IV Cipro and Flagyl. Advance diet to full liquid. Plan on discharge tomorrow if tolerating diet and remains afebrile. Follow-up with GI. (4) DANIELA (acute kidney injury) Status: Acute Assessment and plan: Resolved. (5) Bacteremia Status: Acute Assessment and plan: Repeat blood cultures. We will extend the antibiotics length of treatment 2 weeks. She is not showing signs of infection. Her white count is resolved. She is afebrile. - Subjective Interval history: No acute events. She did not fill, for discharge. The family has asked for her to stay 1 more night and that was treated she was not discharged yesterday. She is tolerating diet this morning. She is tolerating regular diet. She is afebrile. She has no pain. - Constitutional Vitals: Temp Pulse Resp BP Pulse Ox 98.2 F 74 16 164/79 93 06/23/17 07:15 06/23/17 07:15 06/23/17 07:15 06/23/17 07:15 06/23/17 07:15 General appearance: Present: A&O X 3, no acute distress Exam: GEN: NAD CVS: RRR. S1, S2, No m/r/g RESP: CTAB ABD: Soft, NT, ND, +BS EXT: No edema. 2+ DP. No rashes NEURO: Nonfocal Internal Medicine: Result - Labs CBC & Chem 7: 06/23/17 04:57 06/23/17 04:57 Labs: Short CBC 06/23/17 Range/Units 04:57 WBC 9.3 (4.3-11.1) K/mcL Hgb 8.8 L (11.5-15.4) g/dL Hct 27.0 L (35.3-44.9) % Plt Count 169 (140-400) K/mcL Neutrophils # 7.7 (1.6-8.9) K/mcL BMP 06/23/17 04:57 Sodium 139 Potassium 3.5 Chloride 111 H Carbon Dioxide 22 L BUN 11 Creatinine 0.87 Glucose 115 H Calcium 8.5 L Liver Function 06/23/17 Range/Units 04:57 Total Bilirubin 1.4 H (0.3-1.0) mg/dL AST 41 H (13-39) Units/L ALT 85 H (7-52) Units/L Alkaline Phosphatase 144 H (34-104) Units/L Albumin 2.6 L (3.5-5.7) g/dL - ABG Interpretation ABG results: PT/INR, D-dimer PT 12.0 Seconds (9.4-12.1) 06/20/17 06:12 Consult Discharge Plan - Plan Instructions: Sulfamethoxazole/Trimethoprim (By mouth), Endoscopic Retrograde Cholangiopancreatography (DC) Referrals: Nawaf Tapia DO [Primary Care Provider] - 07/03/17 9:30 am Owen Cadena MD [Partnered Physician] - (Dr. Cadena's office will call to schedule a follow up appointment for 6 weeks.) Prescriptions: Sulfamethoxazole/Trimeth SS [Bactrim SS] 1 each PO BID #28 tablet
== END 2017-06-23 12:22 | disposition home or self-care (01) ==
LOC: 3BNU 15:50 → EMEROO 15:50 → 3BNU 21:47
PROVIDERS: ADMIT Pediatrics; ATTEND Registered Nurse

== ENCOUNTER 2018-11-01 10:02 | Observation (INO) ==
[2018-11-01] MEDS ORDERED: Aspirin 81 MG TAB.CHEW PO ONE (10:28)
[2018-11-01] MEDS ORDERED: Azithromycin 250 MG TABLET PO ONE (10:29)
--- NOTE | 2018-11-01 10:37 | Emergency Department Note ---
Disposition Clinical Impression: Chest pain Qualifiers: Chest pain type: unspecified Qualified Code(s): R07.9 - Chest pain, unspecified Disposition: Still a Patient General Adult HPI - General Chief complaint: ED Chest Pain Stated complaint: chest pain Time Seen by Provider: 11/01/18 10:18 Source: patient, family Limitations: no limitations Nursing Notes Reviewed: Yes Vital Signs Reviewed: Yes - History of Present Illness HPI Narrative: Attestation note: Patient was seen with the emergency medicine resident/nurse practitioner/physician baking assistant/transitional resident/medical student: Dr. Zan Herrera I have personally performed a face to face evaluation on this patient. I have reviewed and agree with history and physical examination patient management and disposition. Briefly the salient points of the case are as follows: 83-year-old female with daughter by private vehicle for chest pain this morning. No pre-existing history of coronary artery disease. Her HEART score calculated at 4. Patient is hemodynamically stable. We gave her 325 mg of aspirin in the emergency department and some Tylenol for discomfort. Patient told lead EKG showed a sinus rhythm with left atrial enlargement left bundle branch block but these are pre-existing changes that have not altered since 08/01/2017 patient will get troponin screening labs including checked the chest x-ray with admission possible fracture decision-making. Disposition pending Pain Scale: 5 - Related Data Home Medications Medication Instructions Recorded Confirmed Atorvastatin Calcium [Lipitor] 20 mg PO HS 06/19/17 11/03/17 Docusate Sodium [Dok] 100 mg PO DAILY PRN 06/19/17 11/03/17 Losartan Potassium [Cozaar] 100 mg PO DAILY 06/19/17 11/03/17 metFORMIN [Glucophage] 500 mg PO BID 06/19/17 11/03/17 Previous Rx's Medication Instructions Recorded Omeprazole [PriLOSEC] 20 mg PO DAILY #28 cap 10/19/17 Allergies Allergy/AdvReac Type Severity Reaction Status Date / Time Penicillins Allergy Hives Verified 11/03/17 12:24 Iodinated Contrast- Oral and AdvReac Chest Pain Verified 11/03/17 12:24 IV Dye Past Medical History - Past Medical History Medical history: Reports: arthritis, diabetes, GERD, hyperlipidemia, hypertension Surgical history: Reports: appendectomy, cataract, cholecystectomy, hysterectomy Psychiatric history: Reports: no psych history W[employer] 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: Reports: no [employer] 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 - Social History Smoking Status: Never smoker Smokeless Tobacco Status: No Alcohol use: Reports: none Drug use: Reports: none Physical Exam - General Limitations: no limitations General appearance: alert, in no apparent distress Course Vital Signs Temperature 98.3 F 11/01/18 10:11 Pulse Rate 79 11/01/18 10:11 Respiratory Rate 16 11/01/18 10:11 Blood Pressure 144/95 11/01/18 10:11 O2 Sat by Pulse Oximetry 98 11/01/18 10:11 Temperature 98.3 F 11/01/18 10:11 Pulse Rate 79 11/01/18 10:11 Respiratory Rate 16 11/01/18 10:11 Blood Pressure 144/95 11/01/18 10:11 O2 Sat by Pulse Oximetry 98 11/01/18 10:11 Oxygen Delivery Oxygen Delivery Room Air
[2018-11-01 10:40] LABS: Basophils % 0.5 %; Eosinophils # 0.1 K/mcL (0.0-0.6); Eosinophils % 1.5 %; Hematocrit 33.9 % (35.3-44.9); Hemoglobin 10.9 g/dL (11.5-15.4); Immature Granulocytes % 0.3 % (0-4); Lymphocytes # 0.9 K/mcL (0.6-4.6); Lymphocytes % 15.7 %; Mean Corpuscular HGB Conc 32.2 g/dL (31.6-35.5); Mean Corpuscular Hemoglobin 28.9 pg (28.0-33.3); Mean Corpuscular Volume 89.9 fL (83.0-100.0); Mean Platelet Volume 10.9 fL (9.4-12.4); Monocytes # 0.7 K/mcL (0.0-1.3); Monocytes % 11.1 %; Neutrophils # 4.2 K/mcL (1.6-8.9); Platelet Count 226 K/mcL (140-400); Red Blood Count 3.77 M/mcL (3.82-4.97); Red Cell Distribution Width 13.6 % (11.5-14.5); Segmented Neutrophils % 70.9 %
--- NOTE | 2018-11-01 10:52 | Emergency Department Note ---
Disposition Clinical Impression: Stable angina Chest pain Qualifiers: Chest pain type: unspecified Qualified Code(s): R07.9 - Chest pain, unspecified Disposition: Admitted As Inpatient Condition: Fair Forms: ED Satisfaction Letter Time of Disposition: 11:54 Chest Pain HPI - General Chief Complaint: ED Chest Pain Stated Complaint: chest pain Time Seen by Provider: 11/01/18 10:18 Source: patient, family Mode of arrival: ambulatory Limitations: no limitations Vital Signs Reviewed: Yes Nursing Notes Reviewed: Yes - History of Present Illness HPI Narrative: 83-year-old male presents to the emergency department with chest pain. Says she has not has had a cough for approximately 3 months also complaining of chest pain that began approximate 9:30 this morning says looking left-sided of her chest worsening or sticks a deep breath or coughs. She is read as a sharp pain 8 out of 10 when it occurs when she is sitting there she does not have pain. Never had any cardiac history does not history of hypertension and diabetes no hypercholesterolemia. There is been no nausea or vomiting is not worse with exertion. Otherwise has no other complaints at this time. Severity scale (1-10): 5 - Related Data Home Medications Medication Instructions Recorded Confirmed Atorvastatin Calcium [Lipitor] 20 mg PO HS 06/19/17 11/03/17 Docusate Sodium [Dok] 100 mg PO DAILY PRN 06/19/17 11/03/17 Losartan Potassium [Cozaar] 100 mg PO DAILY 06/19/17 11/03/17 metFORMIN [Glucophage] 500 mg PO BID 06/19/17 11/03/17 Previous Rx's Medication Instructions Recorded Omeprazole [PriLOSEC] 20 mg PO DAILY #28 cap 10/19/17 Allergies Allergy/AdvReac Type Severity Reaction Status Date / Time Penicillins Allergy Hives Verified 11/03/17 12:24 Iodinated Contrast- Oral and AdvReac Chest Pain Verified 11/03/17 12:24 IV Dye All systems ED: reviewed and negative except as stated. 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 - Social History Smoking Status: Never smoker Alcohol use: Reports: none Drug use: Reports: none Physical Exam - General Limitations: no limitations General appearance: alert, in no apparent distress - Head Head exam: atraumatic, normocephalic, normal inspection - Eye Eye exam: Present: normal appearance, PERRL, EOMI - ENT ENT exam: normal exam, normal oropharynx, mucous membranes moist - Neck Neck exam: Present: normal inspection, full ROM, trachea midline - Chest Chest inspection: Present: normal inspection, symmetric chest wall rise - Respiratory Respiratory exam: Present: normal lung sounds bilaterally - Cardiovascular Cardiovascular exam: Present: regular rate, normal rhythm, normal heart sounds - Abdominal Exam Abdominal exam: Present: soft, Non-Tender, normal bowel sounds. Absent: tenderness, distention, guarding, rebound, rigidity - Extremities Exam Extremities exam: Present: normal inspection, full ROM. Absent: tenderness, pedal edema - Back Exam Back exam: Present: normal inspection, full ROM. Absent: tenderness, CVA tenderness (R), CVA tenderness (L) - Neurological Exam Neurological exam: Present: alert, oriented X3 - Skin Skin exam: Present: warm, dry, intact, normal color Course Course Narrative: We will get EKG, chest x-ray, troponin as well as CBC BMP. We will give patient aspirin as well as Tylenol for pain control. Patient care this plan. Disposition pending results. Vital Signs Temperature 98.3 F 11/01/18 10:11 Pulse Rate 79 11/01/18 10:11 Respiratory Rate 16 11/01/18 10:11 Blood Pressure 144/95 11/01/18 10:11 O2 Sat by Pulse Oximetry 98 11/01/18 10:11 Temperature 98.3 F 11/01/18 10:11 Pulse Rate 69 11/01/18 10:57 Respiratory Rate 16 11/01/18 10:57 Blood Pressure 135/70 11/01/18 10:57 O2 Sat by Pulse Oximetry 97 11/01/18 10:57 Oxygen Delivery Oxygen Delivery Room Air Chest Pain - [facility] Narrative Medical decision making narrative: 83-year-old female presented emergency department with chest pain. Labs including troponin came back negative. EKG did have a left bundle branch block but this is old when compared with old EKGs. Chest x-ray no acute findings. Patient is still having chest pain at this time scrubbing at 203 worse with breathing. I did offer patient repeat troponin and possibly go home with cardiogenic follow-up patient decided that she was worried about the risk and decided that she wanted to be admitted to the hospital for stress test. I spoke with the hospitalist Dr. Gonzalez who agreed to admit the patient to their service. Patient admitted in stable condition. We she did receive an aspirin while here in the emergency department as well as Tylenol for pain control. Chest X-Ray 11/01/18 10:28 IMPRESSION: 1. No acute abnormality. D/ / Kyler Soria MD / Kyler Soria MD Interpreting Provider: Kyler Soria MD - Medical Records Medical records reviewed: Yes I reviewed the patient's medical records. - Lab Data Lab results reviewed: Yes I reviewed the patient's lab results. Result diagrams: 11/01/18 10:20 11/01/18 10:20 Lab Results 11/01/18 11/01/18 11/01/18 Range/Units 10:20 10:20 10:55 WBC 5.9 (4.3-11.1) K/mcL RBC 3.77 L (3.82-4.97) M/mcL Hgb 10.9 L (11.5-15.4) g/dL Hct 33.9 L (35.3-44.9) % MCV 89.9 (83.0-100.0) fL MCH 28.9 (28.0-33.3) pg MCHC 32.2 (31.6-35.5) g/dL RDW 13.6 (11.5-14.5) % Plt Count 226 (140-400) K/mcL MPV 10.9 (9.4-12.4) fL Immature Gran % 0.3 (0-4) % Seg Neutrophils % 70.9 % Lymphocytes % 15.7 % Monocytes % 11.1 % Eosinophils % 1.5 % Basophils % 0.5 % Neutrophils # 4.2 (1.6-8.9) K/mcL Lymphocytes # 0.9 (0.6-4.6) K/mcL Monocytes # 0.7 (0.0-1.3) K/mcL Eosinophils # 0.1 (0.0-0.6) K/mcL Basophils # 0.0 (0.0-0.2) K/mcL Sodium 142 (136-145) mEq/L Potassium 3.7 (3.5-5.1) mEq/L Chloride 105 (98-107) mEq/L Carbon Dioxide 27 (23-29) mEq/L BUN 21 (8-23) mg/dL Creatinine 1.03 (0.60-1.20) mg/dL Est GFR ( Amer) > 60 (> 60) Est GFR (Non-Af Amer) 51 L (> 60) BUN/Creatinine Ratio 20 (6-26) Glucose 171 H (70-105) mg/dL Calculated Osmolality 301 H (280-300) Calcium 9.3 (8.6-10.3) mg/dL Troponin I < 0.03 (< 0.04) ng/mL Urine Color Yellow (Yellow) Urine Clarity Clear (Clear) Urine pH 6.5 (5.0-8.0) pH Units Ur Specific [place] < 1.005 L (1.010-1.025) Urine Protein Negative (Neg-Trace) mg/dL Urine Glucose (UA) Normal (Normal) mg/dL Urine Ketones Negative (Negative) mg/dL Urine Blood Negative (Negative) Urine Nitrite Negative (Negative) Urine Bilirubin Negative (Negative) Urine Urobilinogen Normal (Normal) mg/dL Ur Leukocyte Esterase Negative (Negative) Ur Culture Indicated? NO (NO) - Radiology Data Radiology results reviewed: Yes I reviewed the patient's radiology results. - EKG Data EKG attestation: Yes I reviewed and interpreted this EKG. EKG results narrative: EKG done at 1010 review myself and attending shows sinus rhythm at rate of 80, IN interval 210, QRS 135, QTC 493. No acute ST changes no acute T-wave changes no other signs of ischemia. There is left bundle branch block no other blocks no hypertrophy, heart strain. No WPW/Brugada/HOCM. Compared with old EKG done 08/01/17 also has left bundle-branch block otherwise no other changes Heart Score - Score History: Slightly Suspicious EKG: Non Specific repolarisation Disturbance Age: Greater than 65 Risk Factors: 1-2 risk factors Troponin: Less than normal limit HEART Score Total: 4
[2018-11-01 10:58] LABS: BUN/Creatinine Ratio 20 (6-26); Blood Urea Nitrogen 21 mg/dL (8-23); Calcium 9.3 mg/dL (8.6-10.3); Carbon Dioxide 27 mEq/L (23-29); Chloride 105 mEq/L (98-107); Glucose 171 mg/dL (70-105); Osmolality,Calculated 301 (280-300); Potassium 3.7 mEq/L (3.5-5.1); Sodium 142 mEq/L (136-145); eGFR For Non-African Americans 51 (> 60)
[2018-11-01 10:59] LABS: Troponin I < 0.03 ng/mL (< 0.04)
[2018-11-01 11:08] LABS: Bilirubin,Urine Negative (Negative); Blood,Urine Negative (Negative); Clarity,Urine Clear (Clear); Color,Urine Yellow (Yellow); Glucose,Urine (UA) Normal (Normal); Ketones,Urine Negative (Negative); Leukocyte Esterase,Urine Negative (Negative); Nitrite,Urine Negative (Negative); PH,Urine 6.5 pH Units (5.0-8.0); Protein,Urine Negative (Neg-Trace); Specific Gravity,Urine < 1.005 (1.010-1.025); Urobilinogen,Urine Normal (Normal)
--- NOTE | 2018-11-01 12:55 | Internal Med History&Physical ---
Date of Encounter: 11/01/18 Time of Encounter: 12:55 Internal Medicine - H&P: HPI Chief complaint: Chest pain History of present illness: 83-year-old Female with past medical history of hypertension, diabetes and GERD who presents to the emergency department with chest pain associated with cough. She described the pain as sharp pain 8 out of 10 in intensity, the patient deny palpitation, orthopnea, paroxysmal nocturnal dyspnea, diaphoresis, difficulty breathing. The patient has no history of coronary artery disease. The patient was evaluated by the ER staff her initiated troponin was within normal limits and EKG was was no significant abnormalities the patient was admitted for further evaluation and management and to rule out acute coronary syndrome Past Med Surg Social Fam HX - Past Medical History Medical history: arthritis, diabetes, GERD, hyperlipidemia, hypertension Additional medical history: PUD Psychiatric history: no psych history - Past Surgical History Surgical History: appendectomy, cataract, cholecystectomy, hysterectomy Additional surgical history: Bile duct stent placed. Hemorrhoids - Social History Smoking Status: Never smoker Smokeless Tobacco Status: No Alcohol use: none Drug use: none - Family History Brother Hx Family Cardiac Disorders: Yes (Hypertension) Internal Medicine - H&P: Meds Atorvastatin Calcium [Lipitor] 20 mg PO DAILY 06/19/17 [History] Losartan Potassium [Cozaar] 100 mg PO DAILY 06/19/17 [History] metFORMIN [Glucophage] 500 mg PO BID 06/19/17 [History] Omeprazole [PriLOSEC] 20 mg PO DAILY #28 cap 10/19/17 [Rx] Allergy/AdvReac Type Severity Reaction Status Date / Time Penicillins Allergy Hives Verified 11/03/17 12:24 Iodinated Contrast- Oral and AdvReac Chest Pain Verified 11/03/17 12:24 IV Dye All Systems PM: A 10-system review of systems was performed and is negative for pertinent findings except as documented above in the HPI. - Constitutional Constitutional: no chills, no fever(s), no night sweats - EENT Eyes: no change in vision, no discharge, no pain, no photophobia Ears: no ear discharge, no ear pain, no tinnitus Nose, mouth and throat: no dysphagia, no nasal discharge, no neck pain, no sore throat - Cardiovascular Cardiovascular ROS IM: chest pain, no diaphoresis, no dyspnea, no lightheadedness, no palpitations, no syncope - Respiratory Respiratory: cough, no dyspnea, no wheezing, no excessive phlegm production - Gastrointestinal Gastrointestinal: no abdominal pain, no diarrhea, no hematemesis, no hematochezia, no melena, no nausea, no vomiting - Genitourinary Genitourinary: no change in urinary stream, no dysuria, no flank pain, no hematuria - Musculoskeletal Musculoskeletal ROS IM: no numbness, no tingling - Integumentary Integumentary IM: no rash, no unusual bruising - Neurological Neurological ROS: no confusion, no convulsions, no focal weakness, no numbness, no tingling, no tremor(s) - Hematologic/Lymphatic Hematologic/Lymphatic: no easy bruising - Constitutional Vitals: Temp Pulse Resp BP Pulse Ox 98.3 F 73 18 126/67 96 11/01/18 10:11 11/01/18 12:12 11/01/18 12:12 11/01/18 12:12 11/01/18 12:12 General appearance: Present: A&O X 3 Exam: As below - Head Head exam: Present: atraumatic, normocephalic - Eye Eye exam: Present: PERRL, conjuntiva pink, sclera anicteric Pupils: Present: PERRL - Neck Neck exam general surgery: Present: supple, trachea midline. Absent: lymphadenopathy - Respiratory Respiratory exam: Present: CTAB. Absent: accessory muscle use, rales, rhonchi, wheezes - Cardiovascular Cardiovascular exam: Present: RRR, +S1, +S2. Absent: diastolic murmur, gallop, rubs, systolic murmur - GI/Abdominal GI/Abdominal exam: Present: normal bowel sounds, soft, no peritoneal signs. Absent: distended, tenderness - Extremities Exam Extremities exam: Present: warm, radial pulses palpable and symmetrical. Absent: calf tenderness, cyanotic, pedal edema - Neurological Exam Neurological exam: Present: CN II-XII intact, oriented X3, no focal deficits. Absent: pronater drift, facial droop, speech deficit - Skin Skin exam: Present: dry, intact Internal Med - H&P Results - Labs CBC & Chem 7: 11/02/18 01:11 11/01/18 14:25 Labs: Short CBC 11/01/18 Range/Units 10:20 WBC 5.9 (4.3-11.1) K/mcL Hgb 10.9 L (11.5-15.4) g/dL Hct 33.9 L (35.3-44.9) % Plt Count 226 (140-400) K/mcL Neutrophils # 4.2 (1.6-8.9) K/mcL BMP 11/01/18 10:20 Sodium 142 Potassium 3.7 Chloride 105 Carbon Dioxide 27 BUN 21 Creatinine 1.03 Glucose 171 H Calcium 9.3 Cardiac Enzymes 11/01/18 Range/Units 10:20 Troponin I < 0.03 (< 0.04) ng/mL Urine 11/01/18 Range/Units 10:55 Urine Color Yellow (Yellow) Urine Clarity Clear (Clear) Urine pH 6.5 (5.0-8.0) pH Units Ur Specific [place] < 1.005 L (1.010-1.025) Urine Protein Negative (Neg-Trace) mg/dL Urine Glucose (UA) Normal (Normal) mg/dL - Impressions ITS Impressions Chest X-Ray 11/01/18 10:28 IMPRESSION: 1. No acute abnormality. D/ / Kyler Soria MD / Kyler Soria MD Interpreting Provider: Kyler Soria MD - Assessment and Plan (1) Chest pain Status: Acute Assessment and plan: ASSESSMENT: - Chest pain DD *CAD *Muskuloskeletal CP - myofascial strain, costochondritis *GERD *Esophageal spasm *Pneumonia - no infiltrate on CXR PLAN: - cardiac enzymes x 2 q 8 hr - EKG now and in AM - ASA - O2 by NC to keep SpO2 greater than 92% - CBCD, BMP in AM - Fasting lipids - Tylenol 650 mg PO q 4-6 hr PRN headache - Home meds (check list) - 2D Echo - Cardiology consult Qualifiers: Chest pain type: unspecified Qualified Code(s): R07.9 - Chest pain, unspecified (2) Hypertension Status: Acute Assessment and plan: We will continue home medication Qualifiers: Hypertension type: essential hypertension Qualified Code(s): I10 - Essential (primary) hypertension (3) Anemia Status: Acute Assessment and plan: We will continue to monitor H&H, transfuse for HGb less than 7 Qualifiers: Anemia type: unspecified type Qualified Code(s): D64.9 - Anemia, unspec ified (4) Diabetes Status: Chronic Assessment and plan: We will hold metformin and start insulin sliding scale with moderate coverage Qualifiers: Diabetes mellitus type: type 2 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
[2018-11-01] MEDS ORDERED: *HR* HYDROcodone/Acet 5/325 mg TABLET PO PRN (12:56)
[2018-11-01] MEDS ORDERED: Ondansetron ODT 4 MG TAB.RAPDIS SL PRN (12:56)
[2018-11-01] MEDS ORDERED: Acetaminophen 325 MG TABLET PO PRN (12:56)
[2018-11-01] MEDS ORDERED: Naloxone 0.4 MG/ML INJ IVP PRN ×2 (12:56)
[2018-11-01 15:10] LABS: Alanine Aminotransferase 9 Units/L (7-52); Albumin 3.8 g/dL (3.5-5.7); Albumin/Globulin Ratio 1.2 (1.1-2.2); Alkaline Phosphatase 38 Units/L (34-104); Aspartate Amino Transferase 15 Units/L (13-39); BUN/Creatinine Ratio 22 (6-26); Bilirubin,Total 0.5 mg/dL (0.3-1.0); Blood Urea Nitrogen 21 mg/dL (8-23); Calcium 9.1 mg/dL (8.6-10.3); Carbon Dioxide 26 mEq/L (23-29); Chloride 105 mEq/L (98-107); Globulin 3.1 g/dL (2.4-3.5); Glucose 121 mg/dL (70-105); Osmolality,Calculated 298 (280-300); Potassium 3.7 mEq/L (3.5-5.1); Sodium 142 mEq/L (136-145); Total Protein 6.9 g/dL (6.4-8.9); eGFR For Non-African Americans 55 (> 60)
[2018-11-01] MEDS ORDERED: *HR* Dextrose 50 % in Water (Syg) 50 ML SYRINGE IVP PRN (17:19)
[2018-11-01] MEDS ORDERED: D5% in Water 1,000 ML IVC PRN (17:19)
[2018-11-01] MEDS ORDERED: Dextrose Gel 15 GM/37.5 ML TUBE PO PRN ×2 (17:19)
[2018-11-01] MEDS ORDERED: Insulin LISPRO 300 UNITS/3 ML VIAL SQ SCH (21:00)
[2018-11-02 01:52] LABS: Basophils % 0.4 %; Eosinophils # 0.2 K/mcL (0.0-0.6); Eosinophils % 3.3 %; Hematocrit 31.7 % (35.3-44.9); Hemoglobin 10.1 g/dL (11.5-15.4); Immature Granulocytes % 0.2 % (0-4); Lymphocytes # 1.3 K/mcL (0.6-4.6); Lymphocytes % 25.8 %; Mean Corpuscular HGB Conc 31.9 g/dL (31.6-35.5); Mean Corpuscular Hemoglobin 28.8 pg (28.0-33.3); Mean Corpuscular Volume 90.3 fL (83.0-100.0); Mean Platelet Volume 10.9 fL (9.4-12.4); Monocytes # 0.6 K/mcL (0.0-1.3); Monocytes % 10.6 %; Neutrophils # 3.1 K/mcL (1.6-8.9); Platelet Count 206 K/mcL (140-400); Red Blood Count 3.51 M/mcL (3.82-4.97); Red Cell Distribution Width 13.8 % (11.5-14.5); Segmented Neutrophils % 59.7 %
[2018-11-02 02:01] LABS: INR 0.9; Prothrombin Time 10.5 Seconds (9.4-12.1)
[2018-11-02 02:04] LABS: Activated Partial Thrombo Time 30.3 Seconds (26.0-36.0)
[2018-11-02 02:13] LABS: Magnesium 1.9 mg/dL (1.6-2.6); Phosphorous 3.5 mg/dL (2.7-4.5)
[2018-11-02] MEDS ORDERED: Regadenoson 0.4 MG/5 ML SYRINGE IVP ONE (08:08)
[2018-11-02] MEDS: Insulin LISPRO 300 UNITS/3 ML VIAL SQ SCH ×2 (08:24→12:12)
[2018-11-02] MEDS ORDERED: Aspirin 81 MG TAB.CHEW PO SCH (09:00)
--- NOTE | 2018-11-02 10:14 | Electrocardiograph Report ---
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
[2018-11-02 12:04] VITALS: BP 147/65
--- NOTE | 2018-11-02 12:37 | Discharge Summary ---
- NOTES TO OUTPATIENT PROVIDER Notes to Outpatient Provider: CP: TTE and Lexiscan negative Date of Encounter: 11/02/18 Time of Encounter: 12:35 Hospital course: Dear Doctors, I recently had the opportunity to care for this patient during their recent hospital stay at [facility]. Debbi Barriga is a pleasant 83 F w hx HTN, HLD, DM2, GERD, who presented at time of admission with sharp chest pain occurring with cough and deep breathing. In the ED, trops negative and ECG unchanged from baseline with known LBBB. No hx CAD and pain very atypical but given risk factors she was admitted for inpatient stress. In the hospital, TTE showed normal LVEF and no WMA, and nuc pharm stress was negative for any ischemia. Patient did not experience any further chest discomfort and felt reassured at discharge. Dx: atypical chest pain Pertinent tests/consults: TTE, nuc pharm stress Follow up: PCP 1 week Tests pending: none Med changes: none Mental status: awake, fully oriented Code status: Full It has been my pleasure participating in this patient's care. Please contact me with any questions or concerns regarding their hospital stay. Sincerely, Jayme Camacho MD - Discharge Medications Prescriptions: Continued Losartan Potassium [Cozaar] 100 mg PO DAILY metFORMIN [Glucophage] 500 mg PO BID Atorvastatin Calcium [Lipitor] 20 mg PO DAILY Omeprazole [PriLOSEC] 20 mg PO DAILY #28 cap Home Medications: Atorvastatin Calcium [Lipitor] 20 mg PO DAILY 06/19/17 [History] Losartan Potassium [Cozaar] 100 mg PO DAILY 06/19/17 [History] metFORMIN [Glucophage] 500 mg PO BID 06/19/17 [History] Omeprazole [PriLOSEC] 20 mg PO DAILY #28 cap 10/19/17 [Rx] Allergies/Adverse Reactions: Allergy/AdvReac Type Severity Reaction Status Date / Time Penicillins Allergy Hives Verified 11/03/17 12:24 Iodinated Contrast- Oral and AdvReac Chest Pain Verified 11/03/17 12:24 IV Dye Date of admission: 11/01/18 12:05 Primary care physician: PCP NONE - Constitutional Vitals: Temp Pulse Resp BP Pulse Ox 97.6 F 65 21 147/65 97 11/02/18 12:03 11/02/18 12:03 11/02/18 12:03 11/02/18 12:03 11/02/18 12:03 General appearance: Present: A&O X 3 Exam: General: NAD, good eye contact, well appearing, elderly, pleasant Thoracic: Normal breath sounds b/l, no wheezing or crackles Cardio: Normal S1 and S2, regular rate and rhythm, no murmurs Abdomen: Soft, nontender Extremities: Warm, well perfused. DP pulses 2+ b/l. No edema. Skin: Intact. No rashes, bruises, or ulcers Neuro: Awake, fully oriented. Speech fluent - Patient Status Disposition: Home, Self-Care Condition: Fair Functional capacity at discharge: independent ambulation Overall status at discharge: patient is back to baseline - Discharge Instructions Follow Up With: Nawaf Tapia DO [Partnered Physician] - 11/12/18 9:30 am - Diet and Activity Activity: resume usual activities as tolerated Diet: diabetic diet
--- NOTE | 2018-11-02 14:40 | Electrocardiograph Report ---
[address] [address] Test Date: 2018-11-02 Pat Name: Debbi Barriga Department: 113 Room: 3B44 Gender: F [employer] Specialist: Tito : 1935 Requested By: Alecia Reed Order Number: [id number] Reading MD: Eriberto Dennis Measurements Intervals [place] Rate: 64 P: 56 [place]: 227 QRS: -24 QRSD: 153 T: 167 QT: 476 QTc: 486 Interpretive Statements SINUS RHYTHM WITH FIRST DEGREE AV BLOCK LEFT BUNDLE BRANCH BLOCK Electronically Signed On 11-02-2018 14:38:38 EDT by Eriberto Dennis
== END 2018-11-02 13:34 | disposition home or self-care (01) ==
LOC: EMEROOARM 10:02 → 3BNU 10:02 → SUATTDRO 12:05 → 3BNU 13:28
PROVIDERS: ADMIT Internal Medicine Nephrology; ATTEND Internal Medicine

== ENCOUNTER 2020-08-28 14:41 | Inpatient (IN) ==
[2020-08-28] MEDS ORDERED: Ondansetron 4 MG/2 ML VIAL IVP ONE (14:58)
[2020-08-28] MEDS ORDERED: 0.9 % Sodium Chloride 1,000 ML IVC ONE ×3 (14:58→18:26)
[2020-08-28 15:49] LABS: Mean Corpuscular Volume 86.3 fL (83.0-100.0); Red Cell Distribution Width 13.8 % (11.5-14.5)
[2020-08-28 15:51] LABS: Hemoglobin 9.3 g/dL (11.5-15.4); Immature Platelets 8.5 % (1.1-6.1); Lymphocytes # 0.6 K/mcL (0.6-4.6); Mean Corpuscular HGB Conc 32.1 g/dL (31.6-35.5); Mean Corpuscular Hemoglobin 27.7 pg (28.0-33.3); Mean Platelet Volume 11.1 fL (9.4-12.4); Monocytes # 0.2 K/mcL (0.0-1.3); Platelet Count 123 K/mcL (140-400); Red Blood Count 3.36 M/mcL (3.82-4.97); White Blood Count 5.5 K/mcL (4.3-11.1)
[2020-08-28 15:56] LABS: Prothrombin Time 11.7 Seconds (9.4-12.1)
[2020-08-28 15:59] LABS: Activated Partial Thrombo Time 30.1 Seconds (26.0-36.0)
[2020-08-28 16:11] LABS: Alanine Aminotransferase 8 Units/L (7-52); Albumin 3.4 g/dL (3.5-5.7); Albumin/Globulin Ratio 1.1 (1.1-2.2); Alkaline Phosphatase 41 Units/L (34-104); Aspartate Amino Transferase 19 Units/L (13-39); BUN/Creatinine Ratio 16 (6-26); Bilirubin,Direct 0.1 mg/dL (0.0-0.2); Bilirubin,Indirect 0.3 mg/dL (0.0-1.0); Bilirubin,Total 0.4 mg/dL (0.3-1.0); Blood Urea Nitrogen 19 mg/dL (8-23); Carbon Dioxide 23 mEq/L (23-29); Chloride 99 mEq/L (98-107); Glucose 119 mg/dL (70-105); Lipase 175 Units/L (11-82); Osmolality,Calculated 275 (280-300); Potassium 4.1 mEq/L (3.5-5.1); Sodium 131 mEq/L (136-145); Total Protein 6.4 g/dL (6.4-8.9); Troponin I < 0.03 ng/mL (< 0.04); eGFR For African Americans 53 (> 60); eGFR For Non-African Americans 44 (> 60)
[2020-08-28 16:45] LABS: Neutrophils # 4.7 K/mcL (1.6-8.9); Platelet Estimate Slight Decrease (Normal)
[2020-08-28 18:43] LABS: Bilirubin,Urine Negative (Negative); Blood,Urine Negative (Negative); Clarity,Urine Clear (Clear); Color,Urine Light-Yellow (Yellow); Glucose,Urine (UA) Normal (Normal); Ketones,Urine Negative (Negative); Leukocyte Esterase,Urine Negative (Negative); Nitrite,Urine Negative (Negative); PH,Urine 5.5 pH Units (5.0-8.0); Protein,Urine Trace mg/dL (Neg-Trace); Specific Gravity,Urine 1.012 (1.010-1.025); Urobilinogen,Urine Normal (Normal)
[2020-08-28] MEDS ORDERED: Ondansetron 4 MG/2 ML VIAL IVP PRN (19:26)
[2020-08-28] MEDS ORDERED: Ketorolac 15 MG/ML VIAL IVP PRN (19:26)
[2020-08-28] MEDS ORDERED: Naloxone 0.4 MG/ML INJ IVP PRN (19:26)
[2020-08-28] MEDS ORDERED: Dextrose Gel 15 GM/37.5 ML TUBE PO PRN ×2 (19:32)
[2020-08-28] MEDS ORDERED: *HR* Dextrose 50 % in Water (Vial) 50 ML VIAL IVP PRN (19:32)
[2020-08-28] MEDS ORDERED: D5% in Water 1,000 ML IVC PRN (19:32)
[2020-08-28] MEDS: Azithromycin 500 MG in 0.9 % Sodium Chloride 250 ML IVPB SCH (23:42)
[2020-08-28] MEDS: 0.9 % Sodium Chloride 1,000 ML IVC SCH (23:42)
[2020-08-28] MEDS: Cefepime HCl 1,000 MG in 0.9 % Sodium Chloride Mini Bag 100 ML IVPB SCH (23:49)
[2020-08-28] MEDS: Insulin LISPRO 300 UNITS/3 ML VIAL SUBQ SCH (23:50)
[2020-08-29 03:33] LABS: Mean Corpuscular Hemoglobin 27.6 pg (28.0-33.3)
[2020-08-29 03:35] LABS: Basophils % 0.2 %; Hematocrit 28.4 % (35.3-44.9); Hemoglobin 8.8 g/dL (11.5-15.4); Immature Granulocytes % 0.7 % (0-4); Immature Platelets 8.1 % (1.1-6.1); Lymphocytes # 0.8 K/mcL (0.6-4.6); Lymphocytes % 12.6 %; Mean Platelet Volume 11.5 fL (9.4-12.4); Monocytes # 0.2 K/mcL (0.0-1.3); Platelet Count 121 K/mcL (140-400); Red Blood Count 3.19 M/mcL (3.82-4.97); Red Cell Distribution Width 14.2 % (11.5-14.5); Segmented Neutrophils % 82.5 %
[2020-08-29 03:50] LABS: Alanine Aminotransferase 6 Units/L (7-52); Albumin/Globulin Ratio 1.1 (1.1-2.2); Alkaline Phosphatase 36 Units/L (34-104); Aspartate Amino Transferase 17 Units/L (13-39); BUN/Creatinine Ratio 17 (6-26); Bilirubin,Total 0.4 mg/dL (0.3-1.0); Blood Urea Nitrogen 17 mg/dL (8-23); Calcium 7.5 mg/dL (8.6-10.3); Carbon Dioxide 20 mEq/L (23-29); Chloride 110 mEq/L (98-107); Globulin 2.7 g/dL (2.4-3.5); Glucose 100 mg/dL (70-105); Iron < 10 mcg/dL (50-170); Lipase 154 Units/L (11-82); Magnesium 1.9 mg/dL (1.6-2.6); Osmolality,Calculated 288 (280-300); Phosphorous 3.1 mg/dL (2.7-4.5); Potassium 4.2 mEq/L (3.5-5.1); Sodium 138 mEq/L (136-145); Total Protein 5.7 g/dL (6.4-8.9); Transferrin 164 mg/dL (203-362); eGFR For African Americans > 60 (> 60); eGFR For Non-African Americans 51 (> 60)
[2020-08-29 04:07] LABS: Ferritin 149 ng/mL (10-120); Uric Acid 3.6 mg/dL (2.3-7.6)
[2020-08-29 04:12] LABS: Folate 20.9 ng/mL (3.0-16.0)
[2020-08-29] MEDS: Acetaminophen 325 MG TABLET PO PRN (06:02)
[2020-08-29] MEDS: Insulin LISPRO 300 UNITS/3 ML VIAL SUBQ SCH ×4 (08:27→21:12)
[2020-08-29] MEDS: Cefepime HCl 1,000 MG in 0.9 % Sodium Chloride Mini Bag 100 ML IVPB SCH ×2 (09:02→19:54)
[2020-08-29 09:59] LABS: Adenovirus Not Detected (Not Detect); Bordetella Pertussis Not Detected (Not Detect); Chlamydophila pneumoniae Not Detected (Not Detect); Coronavirus 229E Not Detected (Not Detect); Coronavirus HKU1 Not Detected (Not Detect); Coronavirus NL63 Not Detected (Not Detect); Coronavirus OC43 Not Detected (Not Detect); Human Metapneumovirus Not Detected (Not Detect); Human Rhinovirus/Enterovirus Not Detected (Not Detect); Influenza A Subtype 2009 H1 Not Detected (Not Detect); Influenza B Not Detected (Not Detect); Mycoplasma pneumoniae Not Detected (Not Detect); Parainfluenza Virus 1 Not Detected (Not Detect); Parainfluenza Virus 2 Not Detected (Not Detect); Parainfluenza Virus 3 Not Detected (Not Detect); Parainfluenza Virus 4 Not Detected (Not Detect); Respiratory Syncytial Virus Not Detected (Not Detect)
[2020-08-29] MEDS ORDERED: Isovue-370 500 ML BOTTLE IVP ONE (11:20)
[2020-08-29] MEDS: 0.9 % Sodium Chloride 1,000 ML IVC SCH ×2 (11:37→17:40)
[2020-08-29] MEDS: Azithromycin 500 MG in 0.9 % Sodium Chloride 250 ML IVPB SCH (19:55)
[2020-08-30] MEDS: 0.9 % Sodium Chloride 1,000 ML IVC SCH (00:11)
[2020-08-30 05:32] LABS: Basophils % 0.2 %; Eosinophils % 0.4 %; Hematocrit 25.6 % (35.3-44.9); Hemoglobin 8.2 g/dL (11.5-15.4); Immature Granulocytes % 0.5 % (0-4); Lymphocytes % 17.6 %; Mean Corpuscular Hemoglobin 27.5 pg (28.0-33.3); Mean Corpuscular Volume 85.9 fL (83.0-100.0); Mean Platelet Volume 11.9 fL (9.4-12.4); Monocytes # 0.2 K/mcL (0.0-1.3); Neutrophils # 4.4 K/mcL (1.6-8.9); Platelet Count 151 K/mcL (140-400); Red Blood Count 2.98 M/mcL (3.82-4.97); Red Cell Distribution Width 14.3 % (11.5-14.5); Segmented Neutrophils % 77.3 %; White Blood Count 5.7 K/mcL (4.3-11.1)
[2020-08-30 05:58] LABS: Calcium 7.5 mg/dL (8.6-10.3); Magnesium 1.7 mg/dL (1.6-2.6); Phosphorous 2.3 mg/dL (2.7-4.5); Potassium 3.6 mEq/L (3.5-5.1)
[2020-08-30 06:12] LABS: Platelet Estimate Normal (Normal); Reactive Lymphocytes Present (Not Present)
[2020-08-30] MEDS: Insulin LISPRO 300 UNITS/3 ML VIAL SUBQ SCH ×4 (07:37→21:10)
[2020-08-30] MEDS: Cefepime HCl 1,000 MG in 0.9 % Sodium Chloride Mini Bag 100 ML IVPB SCH ×2 (07:38→19:39)
[2020-08-30] MEDS ORDERED: Calcium Gluconate 1gm/50mL 1 GM/50 ML BAG IVPB ONE (07:44)
[2020-08-30] MEDS ORDERED: Ringers Solution, Lactated 1,000 ML IVC SCH (11:30)
[2020-08-30] MEDS ORDERED: *HR* Propofol 200 MG/20 ML VIAL IVP ONE (13:01)
[2020-08-30] MEDS ORDERED: Lidocaine -MPF 2% 2 ML VIAL ONE (13:01)
[2020-08-30] MEDS: Azithromycin 250 MG TABLET PO SCH (19:38)
[2020-08-30] MEDS: Acetaminophen 325 MG TABLET PO PRN (21:41)
[2020-08-31 04:40] LABS: Basophils % 0.3 %; Eosinophils % 0.7 %; Hematocrit 25.4 % (35.3-44.9); Hemoglobin 8.3 g/dL (11.5-15.4); Immature Granulocytes % 0.7 % (0-4); Lymphocytes # 0.9 K/mcL (0.6-4.6); Lymphocytes % 15.6 %; Mean Corpuscular HGB Conc 32.7 g/dL (31.6-35.5); Mean Corpuscular Hemoglobin 27.5 pg (28.0-33.3); Mean Corpuscular Volume 84.1 fL (83.0-100.0); Mean Platelet Volume 11.1 fL (9.4-12.4); Monocytes # 0.4 K/mcL (0.0-1.3); Neutrophils # 4.6 K/mcL (1.6-8.9); Platelet Count 184 K/mcL (140-400); Red Blood Count 3.02 M/mcL (3.82-4.97); Segmented Neutrophils % 76.7 %
[2020-08-31 04:44] LABS: Platelet Estimate Normal (Normal); Reactive Lymphocytes Present (Not Present)
[2020-08-31 04:57] LABS: BUN/Creatinine Ratio 14 (6-26); Blood Urea Nitrogen 14 mg/dL (8-23); Carbon Dioxide 20 mEq/L (23-29); Chloride 111 mEq/L (98-107); Glucose 93 mg/dL (70-105); Magnesium 2.1 mg/dL (1.6-2.6); Osmolality,Calculated 286 (280-300); Phosphorous 2.5 mg/dL (2.7-4.5); Sodium 138 mEq/L (136-145); eGFR For African Americans > 60 (> 60); eGFR For Non-African Americans 52 (> 60)
[2020-08-31] MEDS: Insulin LISPRO 300 UNITS/3 ML VIAL SUBQ SCH ×4 (07:59→21:54)
[2020-08-31] MEDS: Cefepime HCl 1,000 MG in 0.9 % Sodium Chloride Mini Bag 100 ML IVPB SCH (09:28)
[2020-08-31 09:37] LABS: Lambda Qnt Free Light Chains 62.94 mg/L (5.71-26.30)
[2020-08-31 11:58] LABS: Kappa Qnt Free Light Chains 91.65 mg/L (3.30-19.40)
[2020-08-31] MEDS: Acetaminophen 325 MG TABLET PO PRN (17:37)
[2020-08-31 19:15] LABS: Influenza A PCR Negative (Negative); Influenza B PCR Negative (Negative); Resp. Syncytial Virus PCR Negative (Negative)
[2020-08-31] MEDS: Azithromycin 250 MG TABLET PO SCH (19:28)
[2020-08-31] MEDS: Cefdinir 300 MG CAPSULE PO SCH (19:28)
[2020-08-31 19:29] LABS: SARS-CoV-2 by PCR (In House) Positive (Negative)
[2020-09-01 06:03] LABS: Basophils % 0.3 %; Eosinophils # 0.1 K/mcL (0.0-0.6); Eosinophils % 0.8 %; Hematocrit 25.1 % (35.3-44.9); Hemoglobin 8.2 g/dL (11.5-15.4); Immature Granulocytes % 0.4 % (0-4); Lymphocytes # 0.7 K/mcL (0.6-4.6); Lymphocytes % 9.5 %; Mean Corpuscular HGB Conc 32.7 g/dL (31.6-35.5); Mean Corpuscular Hemoglobin 27.6 pg (28.0-33.3); Mean Corpuscular Volume 84.5 fL (83.0-100.0); Mean Platelet Volume 11.4 fL (9.4-12.4); Monocytes # 0.5 K/mcL (0.0-1.3); Monocytes % 6.9 %; Neutrophils # 5.8 K/mcL (1.6-8.9); Platelet Count 237 K/mcL (140-400); Red Blood Count 2.97 M/mcL (3.82-4.97); Red Cell Distribution Width 14.2 % (11.5-14.5); Segmented Neutrophils % 82.1 %; White Blood Count 7.1 K/mcL (4.3-11.1)
[2020-09-01 06:24] LABS: BUN/Creatinine Ratio 14 (6-26); Blood Urea Nitrogen 14 mg/dL (8-23); Calcium 8.2 mg/dL (8.6-10.3); Carbon Dioxide 22 mEq/L (23-29); Chloride 110 mEq/L (98-107); Glucose 113 mg/dL (70-105); Magnesium 1.9 mg/dL (1.6-2.6); Osmolality,Calculated 287 (280-300); Phosphorous 2.5 mg/dL (2.7-4.5); Potassium 3.7 mEq/L (3.5-5.1); Sodium 138 mEq/L (136-145); eGFR For African Americans > 60 (> 60); eGFR For Non-African Americans 54 (> 60)
[2020-09-01] MEDS: Insulin LISPRO 300 UNITS/3 ML VIAL SUBQ SCH ×4 (07:54→22:40)
[2020-09-01] MEDS: Cefdinir 300 MG CAPSULE PO SCH (08:08)
[2020-09-01] MEDS: Acetaminophen 325 MG TABLET PO PRN (08:09)
[2020-09-01 08:21] LABS: Alpha 2 Globulin (PEP) 0.79 g/dL (0.48-1.05); Beta Globulin (PEP) 0.73 g/dL (0.48-1.10)
[2020-09-01] MEDS ORDERED: Dexamethasone Sodium Phos/PF 10 MG/ML VIAL IVP SCH (09:00)
[2020-09-01 09:15] LABS: IFE Reflexed NOT DONE
[2020-09-01] MEDS ORDERED: Sennosides 8.6 MG TABLET PO SCH (13:00)
[2020-09-01] MEDS ORDERED: polyethylene glycoL 3350 17 GM POWD.PACK PO SCH (13:00)
[2020-09-01] MEDS ORDERED: Docusate Oral Soln 100 MG/10 ML UDC PO SCH (13:00)
[2020-09-01] MEDS: Azithromycin 250 MG TABLET PO SCH (22:39)
[2020-09-02] MEDS: Insulin LISPRO 300 UNITS/3 ML VIAL SUBQ SCH (01:38)
[2020-09-02 07:51] VITALS: BP 158/72
[2020-09-02 14:25] LABS: Alpha 2 Globulin (PEP) 0.68 g/dL (0.48-1.05); Beta Globulin (PEP) 0.61 g/dL (0.48-1.10)
[2020-09-03 11:31] LABS: IFE Reflexed NOT DONE
== END 2020-09-02 10:10 | disposition home or self-care (01) | DRG 871 ==
LOC: 3ANU 14:41 → EMEROOARM 14:41 → SUATTDRO 18:17 → 2NNU 18:38 → 2ANU 18:42
PROVIDERS: ADMIT Family Medicine; ATTEND Internal Medicine
PROC: ENDOEBX (2020-08-30 13:00)